=== PATIENT | male | born 1945 | race Caucasian/White ===

== ENCOUNTER 2024-11-06 14:26 | Inpatient (IN) | payer MEDICARE, MEDICAID, SELFPAY ==
[2024-11-06] VITALS (8 sets, daily range): BP systolic 129–165; BP diastolic 59–86; PULSE 58–79; RESP 12–100; TEMP 36.1–37; O2SAT 94–99; BMI 33.3
--- NOTE | 2024-11-06 14:37 | PD.EDADULT ---
ED General RME/HPI General Chief complaint: Extremity Problem,Nontraumatic Stated complaint: LEG PAIN Time Seen by Provider: 11/06/24 14:42 Arrival date/time: 11/06/24 14:26 Limitations: no limitations RME / HPI RME / HPI narrative: DR. 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 Patient's family is concerned with bilateral leg erythema. On 11/03/2024, the patient had an US which was negative for DVT. Code Status: Full code. Related Data Home Medications ?Medication ?Instructions ?Recorded ?Confirmed acetaminophen 650 mg tablet 650 mg PO Q6H PRN Pain (Scale 06/26/21 12/16/23 Score 1-3) allopurinol 300 mg tablet 300 mg PO QDAY 06/26/21 12/16/23 aspirin 81 mg tablet 81 mg PO QDAY 06/26/21 12/16/23 baclofen 10 mg tablet 10 mg PO TID PRN Muscle Spasm 06/26/21 12/16/23 bisacodyl 10 mg rectal suppository See Rx Instructions .Route 06/26/21 12/16/23 (Dulcolax (bisacodyl)) .COMPLEX PRN Constipation carboxymethylcellulose sodium 1 % 1 drp ophthalmic (eye) BID PRN Dry 06/26/21 12/16/23 eye drops (Artificial Tears Eyes (carboxymethylcellulose)) diclofenac sodium 1 % topical gel 4 g topical BID PRN Pain 06/26/21 12/16/23 docusate sodium 100 mg capsule 100 mg PO BID PRN Constipation 06/26/21 12/16/23 (Colace) gabapentin 300 mg capsule 300 mg PO TID 06/26/21 12/16/23 insulin aspart (niacinamide) 7 unit subcut AC 06/26/21 12/16/23 (U-100) 100 unit/mL subcutaneous solution magnesium hydroxide 400 mg/5 mL 30 ml PO Q48H PRN Constipation 06/26/21 12/16/23 oral suspension (Milk of Magnesia) metoprolol tartrate 25 mg tablet 50 mg PO BID 06/26/21 12/16/23 polyethylene glycol 3350 17 gram 17 g PO QDAY PRN Constipation 06/26/21 12/16/23 oral powder packet pramipexole 0.5 mg tablet 0.5 mg PO QPM 06/26/21 12/16/23 rivaroxaban 15 mg tablet (Xarelto) 15 mg PO QPM 06/26/21 12/16/23 sennosides 8.6 mg capsule (senna) 8.6 mg PO QDAY PRN Constipation 06/26/21 12/16/23 spironolactone 25 mg tablet 25 mg PO QDAY 06/26/21 12/16/23 tamsulosin 0.4 mg capsule 0.4 mg PO QDAY 06/26/21 12/16/23 tramadol 50 mg tablet 50 mg PO Q6H PRN Pain (Scale Score 06/26/21 12/16/23 4-6) vitamin B complex-vitamin C-folic 1 tab PO QDAY 06/26/21 12/16/23 acid 0.8 mg tablet (Vicki-Tanesha) amlodipine 5 mg tablet 5 mg PO QDAY 12/16/23 12/16/23 calcium 600 mg (as 1 tab PO BID 12/16/23 12/16/23 carbonate)-vitamin D3 10 mcg (400 unit) tablet glipizide 5 mg tablet 5 mg PO BID 12/16/23 12/16/23 insulin glargine 100 unit/mL 10 unit subcut HS 12/16/23 12/16/23 subcutaneous solution lactulose 20 gram/30 mL oral 30 ml PO QDAY 12/16/23 12/16/23 solution nitroglycerin 0.4 mg sublingual 0.4 mg buccal [id number] PRN Chest 12/16/23 12/16/23 tablet Pain oxycodone 5 mg tablet 5 mg PO PRNMRX2 PRN chronic pain 12/16/23 12/16/23 valsartan 40 mg tablet 40 mg PO QDAY 12/16/23 12/16/23 Previous Rx's ?Medication ?Instructions ?Recorded bumetanide 2 mg tablet 2 mg PO QDAY #30 tabs 12/17/23 Allergies Allergy/AdvReac Type Severity Reaction Status Date / Time Fish Containing Products Allergy Verified 12/16/23 00:22 heparin Allergy Verified 12/16/23 00:22 Review of Systems Review of Systems Systems Reviewed: All systems reviewed, normal except as documented Past Medical History Past Medical History NEUROLOGIC: Positive Neurological Disorders and Cerebrovascular Accident (x5) CARDIAC: Positive Cardiac Disorders and Hypertension; Negative Congestive Heart Failure RESPIRATORY: Negative Chronic Obstructive Pulmonary Disease (COPD) GASTROINTESTINAL: Positive Gastrointestinal Disorders and Obesity GENITOURINARY: Positive Genitourinary Disorders, Renal Disease and Dialysis MUSCULOSKELETAL: Positive Musculoskeletal Disorders ENT: Positive Blind ENDOCRINE: Positive Endocrine Disorders and Diabetes Mellitus Type 2; Negative Diabetes Mellitus Type 1 HEMATOLOGIC: Negative Blood Disorders OTHER HISTORY: Positive Hospitalization, Chicken Pox, Measles and Mumps; Negative Autoimmune Disease, Down Syndrome, Developmental Delay, Shingles, Falls, Blood Transfusions, Anesthesia Reactions, Organ Transplant, MRSA, VRSA, Clostridium Difficile or Cancer Surgical History SURGICAL: Positive Coronary Stent (x2), Abdominal Surgery, Tracheostomy and Joint Replacement; Negative Endocrine Surgery, Ear Surgery, Nephrectomy, Neurologic Surgery, Brain Shunt, Mastectomy, Vasectomy or Organ Transplant Social History SMOKING STATUS: Never smoker SECOND HAND EXPOSURE: No SUBSTANCE USE: does not use ALCOHOL: Never ED Exam General Limitations: Present no limitations General appearance: Present alert, in no apparent distress, obese and other (Patient sleepy.) Head Head exam: Present atraumatic Eye Eye exam: Present normal appearance, PERRL and EOMI ENT ENT exam: Present normal exam, normal oropharynx and mucous membranes moist Neck Neck exam: Present normal inspection, full ROM and trachea midline Chest Chest inspection: Present normal inspection and symmetric chest wall rise Respiratory Respiratory exam: Present normal lung sounds bilaterally Cardiovascular Cardiovascular exam: Present regular rate, normal rhythm and normal heart sounds Abdominal Exam Abdominal exam: Present soft, normal bowel sounds and other (obese) Extremities Exam Extremities exam: Present other (bilateral lower legs' minimal venous stasis dermatitis with a little erythema; no Lizet sign; no cellulitis) Back Exam Back exam: Present normal inspection Neurological Exam Neurological exam: Present other (at baseline per family) Psychiatric Psychiatric exam: Present normal affect and normal mood Skin Skin exam: Present warm, dry, intact and normal color Course Quality Measures none Orders Category Date Time Status Communications Intern NOW Care 11/06/24 14:42 Active Continuous Pulse Oximetry NOW Care 11/06/24 14:42 Completed EKG (ED ONLY) *Do not use* NOW Care 11/06/24 14:42 Completed Glucose [Bedside Blood Glucose] NOW Care 11/06/24 16:50 Active Insert IV NOW Care 11/06/24 14:42 Active EKG (ED Only) Stat Exams 11/06/24 14:42 Draft US venous doppler LE BI Stat Exams 11/06/24 14:42 Completed CBC Stat Lab 11/06/24 14:53 Completed Comprehensive Metabolic Panel Stat Lab 11/06/24 14:53 Completed Partial Thromboplastin Time Stat Lab 11/06/24 14:53 Completed Prothrombin Time with INR Stat Lab 11/06/24 14:53 Completed Troponin I Stat Lab 11/06/24 14:53 Completed Urinalysis Stat Lab 11/06/24 16:00 Completed Insulin Regular Med 11/06/24 15:43 Discontinued 12 unit SC X1 ONE Sodium Chloride 0.9% 1000 ml [Ns] 1,000 ml Med 11/06/24 15:43 Discontinued IV 999 mls/hr cefTRIAXone [Rocephin] 2 gm Med 11/06/24 16:52 Discontinued SODIUM CHLORIDE 0.9% (Popper) [Ns 0.9% (P)] 50 ml IV X1 Vital Signs Vital signs: Vital Signs Temperature 98.0 F 11/06/24 15:19 Pulse Rate 79 11/06/24 15:19 Respiratory Rate 18 11/06/24 15:19 Blood Pressure 129/79 11/06/24 15:19 Pulse Oximetry (%) 97 11/06/24 15:19 Oxygen Delivery Method Room Air 11/06/24 15:19 Discharge Plan Plan Patient Disposition: Admit Acute Care w/in Hospital Prescriptions/Referrals Prescriptions/Med Rec: No Action polyethylene glycol 3350 17 gram Powder In Packet 17 g PO QDAY PRN (Reason: Constipation) acetaminophen 650 mg Tablet 650 mg PO Q6H PRN (Reason: Pain (Scale Score 1-3)) tramadol 50 mg Tablet 50 mg PO Q6H PRN (Reason: Pain (Scale Score 4-6)) spironolactone 25 mg Tablet 25 mg PO QDAY Rx Instructions: hold for sbp <100 or dbp <60 pramipexole 0.5 mg Tablet 0.5 mg PO QPM magnesium hydroxide [Milk of Magnesia] 400 mg/5 mL Suspension 30 ml PO Q48H PRN (Reason: Constipation) tamsulosin 0.4 mg Capsule 0.4 mg PO QDAY baclofen 10 mg Tablet 10 mg PO TID PRN (Reason: Muscle Spasm) bisacodyl [Dulcolax (bisacodyl)] 10 mg Suppository See Rx Instructions .ROUTE .COMPLEX PRN (Reason: Constipation) Rx Instructions: 10 mg rectally as needed Q72HR if no bm docusate sodium [Colace] 100 mg Capsule 100 mg PO BID PRN (Reason: Constipation) gabapentin 300 mg Capsule 300 mg PO TID allopurinol 300 mg Tablet 300 mg PO QDAY Vicki-Tanesha 0.8 mg Tablet 1 tab PO QDAY aspirin 81 mg Tablet 81 mg PO QDAY metoprolol tartrate 25 mg Tablet 50 mg PO BID Rx Instructions: holf if sbp <100 or dbp <60 senna 8.6 mg Capsule 8.6 mg PO QDAY PRN (Reason: Constipation) diclofenac sodium 1 % Gel 4 g TOPICAL BID PRN (Reason: Pain) Rx Instructions: FOR RIGHT KNEE PAIN Xarelto 15 mg Tablet 15 mg PO QPM insulin aspart (niacinamide) 100 unit/mL Solution 7 unit SUBCUT AC Rx Instructions: hold if blood sugar is <80. Artificial Tears (cmc) 1 % Drops 1 drp OPHTHALMIC (EYE) BID PRN (Reason: Dry Eyes) amlodipine 5 mg Tablet 5 mg PO QDAY Rx Instructions: hold if sbp <100 or dpb <60 insulin glargine 100 unit/mL Solution 10 unit SUBCUT HS Rx Instructions: hold if blood sugar <90 glipizide 5 mg Tablet 5 mg PO BID calcium carbonate-vitamin D3 600 mg-10 mcg (400 unit) Tablet 1 tab PO BID lactulose 20 gram/30 mL Solution 30 ml PO QDAY Rx Instructions: hold for loose stools nitroglycerin 0.4 mg Tablet, Sublingual 0.4 mg BUCCAL [id number] PRN (Reason: Chest Pain) Rx Instructions: Give 1 tablet sublingual as needed for chest pain give 1 tab wait 5 mins and give another if chest pain persists, give third dose after another 5 mins if chest pain continues and transfer to ED oxycodone 5 mg Tablet 5 mg PO PRNMRX2 PRN (Reason: chronic pain) valsartan 40 mg Tablet 40 mg PO QDAY Rx Instructions: hold if sbp <100, dbp <60 or hr <60 bumetanide 2 mg tablet 2 mg PO QDAY Qty: 30 0RF Referrals: No Primary/Family,Physician [Primary Care Provider] - In 1 week Problem List Clinical Impression: Acute kidney injury, UTI (urinary tract infection), Hyperglycemia Patient/Caregiver Discharge Instructions Print Language: Amharic Stand Alone Forms: Renee Award Info., Patient Portal Info Letter MDM Narrative [facility] hospital course: I, Annabel Bell, am scribing for and in the presence of Dr. Pelayo. 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 Code Status: Full code. EKG EKG Interpretation narrative: My interpretation: EKG performed at 1453 hours, sinus rhythm with first degree AV block with occasional ventricular premature complexes, rate 72, no acute changes Imaging Radiology reports / interpretation(s): Procedure(s): US venous doppler LE Accession Number(s): [id number] cc: Orion Pelayo MD; Percy Alexander MD~ Examination: Venous duplex lower extremity sonogram, bilateral. Date and time of exam: November 06, 2024 1456 hours INDICATIONS: Bilateral leg swelling and pain beginning 2 days ago Technique: Multiple sonographic images of the deep venous system have been obtained. B-mode/2-D grayscale imaging of vascular structures and Doppler spectral analysis (waveforms) and color performed Both legs are examined. Findings: Deep venous systems do not demonstrate abnormal echogenicity. All visualized deep veins exhibit compressibility. All visualized deep veins exhibit augmentation. Impression: Negative for deep vein thrombosis Dictated By: Percy Alexander MD Medication Administration(s) Medication Administration History Discontinued Medications Sodium Chloride (Ns) 1,000 mls @ 999 mls/hr IV .Q1H1M ONE Stop: 11/06/24 16:43 Last Infusion: 11/06/24 17:24 Dose: Infused Documented By: Admin: 11/06/24 16:15 Dose: 999 mls/hr Documented By: CG Ceftriaxone Sodium 2 gm/ (Sodium Chloride) 50 mls @ 100 mls/hr IV X1 ONE Stop: 11/06/24 17:21 Insulin Human Regular (Insulin Hum Regular 1 Unit/0.01 Ml (Per Unit)) 12 unit SC X1 ONE Stop: 11/06/24 15:44 Last Admin: 11/06/24 16:15 Dose: 12 unit Documented By: SHIKHA Co-signed By: LEANDRO Consultations/Discussions re: Management Consult #1: Date/time: 11/06/24 5:50 pm Physician, specialty, service, details: Discussed test HPI, PMHx, lab, radiology results and/or management with Dr. Bowen. Will consult an admission to the hospitalist. Diagnosis Differential diagnosis: DVT, cellulitis, venous stasis dermatitis Most likely dx, and/or detailed dx discussion: Acute kidney injury UTI Hyperglycemia Dispositon Disposition: Admit
--- NOTE | 2024-11-06 14:42 | XR_ITS ---
Examination: Venous duplex lower extremity sonogram, bilateral. Date and time of exam: November 06, 2024 1456 hours INDICATIONS: Bilateral leg swelling and pain beginning 2 days ago Technique: Multiple sonographic images of the deep venous system have been obtained. B-mode/2-D grayscale imaging of vascular structures and Doppler spectral analysis (waveforms) and color performed Both legs are examined. Findings: Deep venous systems do not demonstrate abnormal echogenicity. All visualized deep veins exhibit compressibility. All visualized deep veins exhibit augmentation. Impression: Negative for deep vein thrombosis
--- NOTE | 2024-11-06 14:42 | EKG_ITS ---
[facility] Test Date: 2024-11-06 Pat Name: SHEREE HARDEN Department: Room: - Gender: Male [employer]: : 1945 Requested By: Orion Mancilla Order Number: [id number] Reading MD: Orion Mancilla Measurements Intervals [place] Rate: 72 P: 67 VA: 255 QRS: -55 QRSD: 91 T: 50 QT: 392 QTc: 431 Interpretive Statements SINUS RHYTHM WITH FIRST DEGREE AV BLOCK WITH OCCASIONAL VENTRICULAR PREMATURE COMPLEXES LOW QRS VOLTAGE IN PRECORDIAL LEADS [QRS DEFLECTION < 1.0 mV IN CHEST LEADS] LEFT ANTERIOR FASCICULAR BLOCK [QRS AXIS <= -45, QR IN I, RS IN II] POSSIBLE ANTERIOR MYOCARDIAL INFARCTION , OF INDETERMINATE AGE [30 ms Q WAVE IN V3/V4, OR R < 0.2 mV IN V4] Compared to ECG 12/15/2023 13:20:13 Left anterior fascicular block now present Myocardial infarct finding still present /store/S0/[id number]/ecg/[id number].pdf
[2024-11-06 15:02] LABS: Basophils % (Auto) 1 % (0-2.5); Eosinophils # (Auto) 0.2 Thou/mm3 (0.0-0.5); Eosinophils % (Auto) 3 % (0-10); Hematocrit 35.4 % (41.0-53.0); Hemoglobin 12.5 g/dL (13.5-16.0); Immature Granulocytes % (Auto) 1 % (0-0); Immature Granulocytes Auto 0.07 Thou/mm3 (0.00-0.00); Lymphocytes # (Auto) 1.6 Thou/mm3 (1.0-4.8); Lymphocytes % (Auto) 24 % (10-50); Mean Corpuscular HGB Conc 35.3 g/dl (31.0-37.0); Mean Corpuscular Hemoglobin 32.3 pg (25.0-35.0); Mean Corpuscular Volume 92 fL (80-100); Monocytes # (Auto) 0.5 Thou/mm3 (0.0-0.8); Monocytes % (Auto) 7 % (0-12); Neutrophils # (Auto) 4.1 Thou/mm3 (1.8-7.7); Neutrophils % (Auto) 64 % (37-80); Nucleated Red Blood Cell % 0 /100 WBC (0); Platelet Count 138 Thou/mm3 (140-440); RDW Standard Deviation 49.9 fL (35.1-43.9); Red Blood Count 3.87 Miln/mm3 (4.50-5.90); White Blood Count 6.5 Thou/mm3 (3.8-10.6)
[2024-11-06 15:17] LABS: INR 1.1 (0.9-1.3); Partial Thromboplastin Time 27.2 Seconds (22.0-36.0); Prothrombin Time 11.9 Seconds (9.0-12.2)
[2024-11-06 15:29] LABS: Alanine Aminotransferase 20 U/L (10-49); Albumin, Serum 3.9 gm/dL (3.4-4.8); Albumin/Globulin Ratio 1.9 (1.2-2.2); Alkaline Phosphatase 84 U/L (46-116); Anion Gap 8 (7-16); Aspartate Amino Transferase 13 U/L (0-34); BUN/Creatinine Ratio 25 Ratio (12-20); Bilirubin,Total 0.3 mg/dL (0.3-1.2); Blood Urea Nitrogen 53 mg/dL (9-23); Calcium 9.1 mg/dL (8.3-10.6); Calcium (Corrected) 9.2 mg/dL (8.5-10.1); Carbon Dioxide 27.4 mMol/L (20.0-31.0); Chloride 96 mMol/L (98-107); Creatinine (Component) 2.1 mg/dL (0.6-1.3); Estimated Creatinine Clearance 38.3 mL/min (>60); Globulin 2.1 gm/dL (2.3-3.5); Osmolality,Calculated 301 (275-295); Sodium 131 mMol/L (136-145); Troponin I < 0.020 ng/mL (0.0-0.045); eGFR 31 See Note
[2024-11-06 15:31] LABS: Glucose 523 mg/dL (74-106)
[2024-11-06 16:15] LABS: Collection Type, Urine Clean Catch
[2024-11-06] MEDS: INSULIN HUM REGULAR 1 UNIT/0.01 ML (PER UNIT) 12 UNIT SC (16:15)
[2024-11-06] MEDS: SODIUM CHLORIDE 0.9% 1000 ML 1,000 ML 999 ML IV (16:15)
[2024-11-06 16:39] LABS: Bilirubin,Urine Negative (Negative); Blood,Urine Negative (Negative); Clarity,Urine Clear (Clear/Hazy); Color,Urine Lt-Yellow (Lt Yel-Yel); Glucose, Urine 3+ (Negative); Hyaline Casts,Urine < 1 /hpf (0-1); Ketones,Urine Negative (Negative); Leukocyte Esterase,Urine Positive (Negative); Nitrite,Urine Negative (Negative); PH,Urine 6.5 (5.0-7.0); Protein,Urine Trace (Neg - Trace); RBC,Urine 4 /hpf (0-3); Specific Gravity,Urine 1.014 (1.001-1.035); Squamous Epithelial Cell,Urine < 1 /hpf (0-5); Urobilinogen,Urine Negative mg/dL (0.0-1.0); WBC,Urine 43 /hpf (0-5)
--- NOTE | 2024-11-06 18:06 | PD.RESEVENT ---
Documentation for date of: 11/06/24 Event Note Event Note: ED called for admission Mr. 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 Pt is found to have blood glucose of 523 with BUN 53, creatinine 2.1. Requested stat renal panel and ABG. Will pass it on to the night team Discussed with my attending physician Dr. Katrina Cunha (PGY-1)- Internal medicine resident
[2024-11-06] MEDS: cefTRIAXone 2 GM in SODIUM CHLORIDE 0.9% (Popper) 50 ML IV (18:13)
[2024-11-06 18:28] LABS: Allen Test Performed/OK; Base Excess 1 (-3-3); HCO3 26 mEq/L (20-26); Inspired Oxygen, FIO2 21 %; O2 Saturation 96 % (91-98); PCO2 47 mmHg (32.0-48.0); PO2 76 mmHg (83-108); Puncture Site Right Radial; pH, Arterial 7.36 (7.35-7.45)
[2024-11-06 18:50] LABS: Albumin, Serum 3.9 gm/dL (3.4-4.8); Anion Gap 5 (7-16); BUN/Creatinine Ratio 26 Ratio (12-20); Blood Urea Nitrogen 51 mg/dL (9-23); Calcium 8.8 mg/dL (8.3-10.6); Calcium (Corrected) 8.9 mg/dL (8.5-10.1); Carbon Dioxide 29.7 mMol/L (20.0-31.0); Chloride 97 mMol/L (98-107); Estimated Creatinine Clearance 40.2 mL/min (>60); Glucose 398 mg/dL (74-106); Osmolality,Calculated 295 (275-295); Potassium 4.9 mMol/L (3.4-5.1); Sodium 132 mMol/L (136-145); eGFR 33 See Note
--- NOTE | 2024-11-06 20:05 | XR_ITS ---
Examination: CT bilateral lower extremities, without contrast. 2-D sagittal reconstructions. 2-D coronal reconstructions. 3-D reconstructions. Date and time of exam:November 06, 2024 at 2123 hours INDICATIONS: Bilateral redness swelling and pain today CTDI: vol (mGy):15.6 DLP: (mGycm):1824 Technique: Multiple 1.25 mm axial sections of the bilateral lower extremities without intravenous contrast have been obtained. 2-D sagittal and coronal reconstructions have been obtained. 3-D reconstructions have been obtained. Low dose protocols were performed. One or more of the following dose reduction techniques were used; automated exposure control, adjustment of the mA and/or KV according to patient size, use of iterative reconstruction technique. Findings: Large amounts of stool in the rectum with thickening of the rectal wall Cellulitis pattern in the lower legs with edema in the subcutaneous fatty tissue No soft tissue abscess No osteomyelitis Heavy arterial vascular calcification IMPRESSION: Cellulitis pattern both lower extremities No soft tissue abscess Negative for osteomyelitis
--- NOTE | 2024-11-06 20:16 | ESHP_ITS ---
<Statement entered by Rosita Cunha MD - 11/07/24 06:31> I Rosita Cunha MD reviewed the note and agree with the resident's assessment & plan with exceptions as below. I have personally reviewed labs, imaging, home meds/prior records, examined the patient, formulated and discussed management plan with the IM team. An 78-year-old male with a history of HTN, DM, CKD, CVA, legally blind, PAD presented to ED with bilateral lower extremity pain and swelling. Initial evaluation did not reveal CHARLENE on CKD, uncontrolled DM with hyperglycemia and UA positive for leukocyte Estrace. EKG did reveal sinus rhythm with first-degree AV block however telemetry concerning for ventricular bigeminy. Echocardiogram previously had been unremarkable. Will admit patient for cellulitis bilateral lower extremity likely in the setting of CVI, started on Zosyn and vancomycin. Continue gentle IVF resuscitation, obtain echocardiogram. Will also obtain US hepatobiliary to evaluate for hepatic disease in the setting of significantly distended abdomen and cirrhotic appearance. 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 Patient at baseline has some aphasia at baseline therefore speech is very difficult to come. Patient stated that around a week ago he started noticing his lower extremity edema, but denied having any fevers, chills, sweats, shortness of breath, chest pain, nausea, vomiting, burning sensation of urination, or changes in bowel movements. He stated that he is bedbound for around 2 years now and has been unable to walk. Patient lives at [facility]. Otherwise had no new complaints today. ED course: Initially came in afebrile and normotensive. Initial labs were relevant for hyperglycemia, CHARLENE, and UA was positive for leukocytes esterase, but -2 bacteria. Initial imaging included a venous Doppler which did not show any DVT and EKG that showed first-degree AV block with occasional PVCs. PMH: As above Social Hx: Denies any smoking, admits social drinking, denies any illicit drugs Allergies: None per patient, asked about heparin allergy and patient stated he has gotten it before and did not have any reaction. Surgical Hx: Back surgery and knee surgery Review of Systems Review of Systems Systems Reviewed: All systems reviewed, normal except as documented Past Medical History Past Medical History NEUROLOGIC: Positive Neurological Disorders and Cerebrovascular Accident (x5) CARDIAC: Positive Cardiac Disorders and Hypertension; Negative Congestive Heart Failure RESPIRATORY: Negative Chronic Obstructive Pulmonary Disease (COPD) GASTROINTESTINAL: Positive Gastrointestinal Disorders and Obesity GENITOURINARY: Positive Genitourinary Disorders, Renal Disease and Dialysis MUSCULOSKELETAL: Positive Musculoskeletal Disorders ENT: Positive Blind ENDOCRINE: Positive Endocrine Disorders and Diabetes Mellitus Type 2; Negative Diabetes Mellitus Type 1 HEMATOLOGIC: Negative Blood Disorders OTHER HISTORY: Positive Hospitalization, Chicken Pox, Measles and Mumps; Negative Autoimmune Disease, Down Syndrome, Developmental Delay, Shingles, Falls, Blood Transfusions, Anesthesia Reactions, Organ Transplant, MRSA, VRSA, Clostridium Difficile or Cancer Surgical History SURGICAL: Positive Coronary Stent (x2), Abdominal Surgery, Tracheostomy and Joint Replacement; Negative Endocrine Surgery, Ear Surgery, Nephrectomy, Neurologic Surgery, Brain Shunt, Mastectomy, Vasectomy or Organ Transplant Social History SMOKING STATUS: Never smoker SECOND HAND EXPOSURE: No SUBSTANCE USE: does not use ALCOHOL: Never Exam Vital Signs Temp Pulse Resp BP Pulse Ox O2 Del Method 98.6 F 58 L 14 136/59 H 94 L Room Air 11/06/24 19:24 11/06/24 19:24 11/06/24 19:24 11/06/24 19:24 11/06/24 19:24 11/06/24 19:24 Narrative Exam General: A/O x3, no acute distress Eyes: Legally blind, anicteric Ears: No ear pain, no ear discharge, Hearing grossly intact. Nose: No nasal discharge. Mouth/Throat: Dry mucous membranes, no redness, no lesions. Neck: Neck supple, non-tender, no cervical lymphadenopathy. Lungs: Clear JAGDEEP to auscultation and percussion, No accessory muscle use. Cardio: Normal S1/S2, regular rhythm, no murmurs, no JVD or carotid bruits. Abdomen: Soft, non-tender, no palpable masses, peristalsis present, no guarding or rebound. Extremities: Symmetrical, no significant deformities, 2+ peripheral edema and blanching erythema with an ulcer in medial L LE without any discharge, non- tender, peripheral pulses presents. Skin: No other rashes or lesions, warm to touch. Neuro: Aphasia noted, moving all extremities, but JAGDEEP LE weak. able to answe all question appropriately and follow commands. Results: Labs 11/06/24 14:53 11/06/24 18:09 Labs: Short CBC 11/06/24 Range/Units 14:53 WBC 6.5 (3.8-10.6) Thou/mm3 Hgb 12.5 L (13.5-16.0) g/dL Hct 35.4 L (41.0-53.0) % Plt Count 138 L (140-440) Thou/mm3 BMP 11/06/24 11/06/24 14:53 18:09 Sodium 131 L 132 L Potassium 5.0 4.9 Chloride 96 L 97 L Carbon Dioxide 27.4 29.7 BUN 53 H 51 H Creatinine 2.1 H 2.0 H Glucose 523 H* 398 H D Calcium 9.1 8.8 Cardiac Enzymes 11/06/24 Range/Units 14:53 Troponin I < 0.020 (0.0-0.045) ng/mL Liver Function 11/06/24 11/06/24 Range/Units 14:53 18:09 Total Bilirubin 0.3 (0.3-1.2) mg/dL AST 13 (0-34) U/L ALT 20 (10-49) U/L Alkaline Phosphatase 84 (46-116) U/L Albumin 3.9 3.9 (3.4-4.8) gm/dL Urine 11/06/24 Range/Units 16:00 Urine Color Lt-Yellow (Lt Yel-Yel) Urine Clarity Clear (Clear/Hazy) Urine pH 6.5 (5.0-7.0) Ur Specific [place] 1.014 (1.001-1.035) Urine Protein Trace (Neg - Trace) Urine Glucose (UA) 3+ A (Negative) ABG Interpretation ABG results: 11/06/24 18:20 ABG pH 7.36 ABG pCO2 47 ABG pO2 76 L ABG HCO3 26 ABG O2 Saturation 96 ABG Base Excess 1 Quality Measures Quality Measures none Advance care planning discussed with:: patient Medications Home Medications and Allergies Home Medications ?Medication ?Instructions ?Recorded ?Confirmed ?Type acetaminophen 650 mg tablet 650 mg PO Q6H PRN Pain (Sc kala 06/26/21 12/16/23 History Score 1-3) allopurinol 300 mg tablet 300 mg PO QDAY 06/26/21 08/06/09 History aspirin 81 mg tablet 81 mg PO QDAY 06/26/2112/15 History baclofen 10 mg tablet 10 mg PO TID PRN Muscle Spas m 06/26/21 12/16/23 History bisacodyl 10 mg rectal suppository See Rx Instructions .Route 06/26/21 12/16/23 History (Dulcolax (bisacodyl)) .COMPLEX PRN Constipation carboxymethylcellulose sodium 1 % 1 drp ophthalmic (ey e) BID PRN Dry 06/26/21 12/16/23 History eye drops (Artificial Tears Eyes (carboxymethylcellulose)) diclofenac sodium 1 % topical gel 4 g topical BID PRN Pain 06/26/21 12/16/23 History docusate sodium 100 mg capsule 100 mg PO BID PRN Const ipation 06/26/21 12/16/23 History (Colace) gabapentin 300 mg capsule 300 mg PO TID 06/26/2112/15 History insulin aspart (niacinamide) 7 unit subcut AC 06/26/21 12/16/23 History (U-100) 100 unit/mL subcutaneous solution magnesium hydroxide 400 mg/5 mL 30 ml PO Q48H PRN Cons tipation 06/26/21 12/16/23 History oral suspension (Milk of Magnesia) metoprolol tartrate 25 mg tablet 50 mg PO BID 06/26/21 12/16/23 History polyethylene glycol 3350 17 gram 17 g PO QDAY PRN Cons tipation 06/26/21 12/16/23 History oral powder packet pramipexole 0.5 mg tablet 0.5 mg PO QPM 06/26/2112/15 History rivaroxaban 15 mg tablet (Xarelto) 15 mg PO QPM 12/16/23 History sennosides 8.6 mg capsule (senna) 8.6 mg PO QDAY PRN C onstipation 06/26/21 12/16/23 History spironolactone 25 mg tablet 25 mg PO QDAY 06/26/2106/09 History tamsulosin 0.4 mg capsule 0.4 mg PO QDAY 06/26/21 08/0 06/09 History tramadol 50 mg tablet 50 mg PO Q6H PRN Pain (Scale Score 06/26/21 12/16/23 History 4-6) vitamin B complex-vitamin C-folic 1 tab PO QDAY 12/16/23 History acid 0.8 mg tablet (Vicki-Tanesha) amlodipine 5 mg tablet 5 mg PO QDAY 12/16/23 History calcium 600 mg (as 1 tab PO BID 12/16/23 History carbonate)-vitamin D3 10 mcg (400 unit) tablet glipizide 5 mg tablet 5 mg PO BID 12/16/23 4 History insulin glargine 100 unit/mL 10 unit subcut HS 4 12/16/23 History subcutaneous solution lactulose 20 gram/30 mL oral 30 ml PO QDAY 12/16/23 History solution nitroglycerin 0.4 mg sublingual 0.4 mg buccal [id number] PRN Chest 12/16/23 12/16/23 History tablet Pain oxycodone 5 mg tablet 5 mg PO [id number] PRN chronic pain 12/16/23 12/16/23 History valsartan 40 mg tablet 40 mg PO QDAY 12/16/2312/15 History Allergies Allergy/AdvReac Type Severity Reaction Status Date / Time Fish Containing Products Allergy Verified 12/16/23 00:22 heparin Allergy Verified 12/16/23 00:22 Visit Medications Hydrocodone Bitart/Acetaminophen (Hydrocodone/Apap 5/325 Tablet) 1 tab PO Q4HR PRN PRN Reason: PAIN SCALE 4-10(Mod-Sev Stop: 11/11/24 19:59 Dextrose (Dextrose 50%-Water Inj 50 Ml Syringe) 25 ml IV Q15MIN PRN PRN Reason: BG 50-70 responsive npo pt Stop: 12/06/24 19:59 Dextrose (Dextrose 50%-Water Inj 50 Ml Syringe) 50 ml IV Q15MIN PRN PRN Reason: BG <50 OR BG <70 & pt unresponsive Stop: 12/06/24 19:59 Glucagon (Glucagon Inj 1 Mg Vial) 1 mg IM Q15MIN PRN PRN Reason: BG <70, and no IV access Doxycycline Hyclate 100 mg/ (Sodium Chloride) 100 mls @ 100 mls/hr IV BID COLTEN Stop: 11/13/24 20:59 Piperacillin Sod/Tazobactam (Sod 4.5 gm/ Sodium Chloride) 100 mls @ 200 mls/hr IV Q8HR COLTEN Stop: 11/13/24 21:59 Insulin Glargine (Insulin Glargine (Lantus) 5 Unit/0.05 Ml (Per 5 Units)) 10 unit SC HS [facility] Stop: 12/06/24 20:59 Insulin Human Lispro (Insulin Lispro (Admelog) 1 Unit/0.01 Ml Unit) 0 unit SC AC [facility]; Protocol Stop: 12/07/24 07:29 Ondansetron HCl (Ondansetron Inj 2 Mg/Ml Inj 2 Ml) 4 mg IVP Q6H PRN; Protocol PRN Reason: NAUSEA OR VOMITING Stop: 12/06/24 19:59 Discontinued Medications Sodium Chloride (Ns) 1,000 mls @ 999 mls/hr IV .Q1H1M ONE Stop: 11/06/24 16:43 Last Infusion: 11/06/24 17:24 Dose: Infused Ceftriaxone Sodium 2 gm/ (Sodium Chloride) 50 mls @ 100 mls/hr IV X1 ONE Stop: 11/06/24 17:21 Last Infusion: 11/06/24 18:30 Dose: Infused Insulin Human Lispro (Insulin Lispro (Admelog) 1 Unit/0.01 Ml Unit) [facility]; Protocol Stop: 12/06/24 20:59 Insulin Human Regular (Insulin Hum Regular 1 Unit/0.01 Ml (Per Unit)) 12 unit SC X1 ONE Stop: 11/06/24 15:44 Last Admin: 11/06/24 16:15 Dose: 12 unit Assessment & Plan Plan 78-year-old male wheelchair-bound and legally blind male with past medical history of 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 #Bilateral lower extremity erythema #Hx of chronic leg edema #Hx of PAD Patient noticed around 1 week of erythema in bilateral lower extremities Patient's last echo on 2021 was EF of 55% Patient has chronic lower extremity swelling, but on assessment had a blanching erythematous rash with a wound on the medial aspect of the left lower extremity likely from venous insufficiency. Patient hide risk for infection being bedbound and history of DM2 Plan: Order inflammatory markers such as ESR CRP and procalcitonin Will start patient on doxycycline and Zosyn for now Ordered blood cultures Ordered BNP as well to rule out worsening CHF Ordered CT of the lower extremities bilateral without contrast Ordered wound care Strict MAXINE's and daily weights #CHARLENE on CKD Patient has a history of CKD and baseline creatinine is around 1.8 and on admission was 2.1 with improved with some fluids to 2. Patient is currently not on hemodialysis Plan: Avoid nephrotoxic agents Renally dose medication Nephrology consulted, appreciate commendations #Frequent PVCs On assessment patient was having frequent PVCs on lunchroom monitor Patient's last echo showed an EF of 55% with mitral and tricuspid valve regurgitation Patient's potassium was 4.9 EKG showed first-degree AV block Plan: 2 gm Magnesium ordered Order magnesium level Ordered echo Order repeat EKG Will give beta-blockers and replete electrolytes as necessary once labs and EKG are back. #Hx of DM2 Patient's last A1c was on 12/2023 and was 6 On admission patient's blood sugar was 523 Got 12 units of regular insulin subcu in the ED Plan: A1c for morning labs Glargine 10 units at bedtime ISS Hypoglycemia protocol ordered Will continue to monitor Chronic diseases: #Hx of CVA with residual aphasia #Hx of hypertension #Hx of blindness Disposition: Patient admitted to [facility] for LE erythema. Diet: Renal GI prophylaxis: not indicated DVT prophylaxis: Lovenox Code: Full Case disclosed with Attending Dr. Alphonse Nash PGY1 Disclaimer: Even though this this note was dictated by speech recognition and even though it was carefully revised there may still be minor errors in cook vacuum kettle due to voice recognition software.
--- NOTE | 2024-11-06 20:22 | EKG_ITS ---
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1945 Requested By: Mode Nash Order Number: [id number] Reading MD: Mode Nash Measurements Intervals [place] Rate: 68 P: 83 OH: 260 QRS: -42 QRSD: 88 T: 53 QT: 368 QTc: 392 Interpretive Statements SINUS RHYTHM WITH FIRST DEGREE AV BLOCK WITH FREQUENT VENTRICULAR PREMATURE COMPLEXES IN A BIGEMINAL PATTERN LOW QRS VOLTAGE IN PRECORDIAL LEADS [QRS DEFLECTION < 1.0 mV IN CHEST LEADS] PATTERN CONSISTENT WITH PULMONARY DISEASE INFERIOR MYOCARDIAL INFARCTION , OF INDETERMINATE AGE [40+ ms Q WAVE AND/OR ST/T ABNORMALITY IN II/aVF] Compared to ECG 11/06/2024 14:53:06 Left anterior fascicular block no longer present Myocardial infarct finding still present /store/S0/[id number]/[id number].pdf
[2024-11-06 20:32] LABS: Sed Rate (ESR) 39 mm/hr (0-20)
[2024-11-06 20:44] LABS: C-Reactive Protein 0.9 mg/dL (0.0-0.9); Magnesium 1.9 mg/dL (1.6-2.6); Procalcitonin 0.11 ng/ml (0.0-0.49)
[2024-11-06] MEDS: INSULIN GLARGINE (Lantus) 5 UNIT/0.05 ML (PER 5 UNITS) 10 UNIT SC (20:52)
[2024-11-06] MEDS: DOXYCYCLINE INJ 100 MG in SODIUM CHLORIDE 0.9% (POP) 100 ML IV (20:53)
[2024-11-06 20:54] LABS: B-Type Natriuretic Peptide 55 pg/mL (0-100)
[2024-11-06] MEDS: Magnesium Sulfate 2 GM Ivpb 2 GM/50 ML BAG IV (20:55)
[2024-11-06] MEDS: PIPER/TAZO INJ 4.5 GM in SODIUM CHLORIDE 0.9% (POP) 100 ML IV (22:36)
[2024-11-07] VITALS (16 sets, daily range): BP systolic 139–177; BP diastolic 78–97; PULSE 68–83; RESP 16–96; TEMP 36.1–36.4; O2SAT 92–98
[2024-11-07 05:20] LABS: Basophils # (Auto) 0.1 Thou/mm3 (0.0-0.2); Basophils % (Auto) 1 % (0-2.5); Eosinophils # (Auto) 0.3 Thou/mm3 (0.0-0.5); Eosinophils % (Auto) 5 % (0-10); Hematocrit 37.8 % (41.0-53.0); Hemoglobin 13.1 g/dL (13.5-16.0); Immature Granulocytes % (Auto) 1 % (0-0); Immature Granulocytes Auto 0.06 Thou/mm3 (0.00-0.00); Lymphocytes # (Auto) 1.9 Thou/mm3 (1.0-4.8); Lymphocytes % (Auto) 28 % (10-50); Mean Corpuscular HGB Conc 34.7 g/dl (31.0-37.0); Mean Corpuscular Hemoglobin 31.6 pg (25.0-35.0); Mean Corpuscular Volume 91 fL (80-100); Monocytes # (Auto) 0.5 Thou/mm3 (0.0-0.8); Monocytes % (Auto) 8 % (0-12); Neutrophils # (Auto) 3.9 Thou/mm3 (1.8-7.7); Neutrophils % (Auto) 57 % (37-80); Nucleated Red Blood Cell % 0 /100 WBC (0); Platelet Count 123 Thou/mm3 (140-440); RDW Standard Deviation 48.6 fL (35.1-43.9); Red Blood Count 4.14 Miln/mm3 (4.50-5.90); White Blood Count 6.8 Thou/mm3 (3.8-10.6)
[2024-11-07 05:28] LABS: Glucose Estimated Average 217 mg/dL (80-131); Hemoglobin A1C 9.2 % Hgb (4.8-6.0)
[2024-11-07] MEDS: PIPER/TAZO INJ 4.5 GM in SODIUM CHLORIDE 0.9% (POP) 100 ML IV (05:29)
[2024-11-07 05:39] LABS: Alanine Aminotransferase 18 U/L (10-49); Albumin, Serum 3.9 gm/dL (3.4-4.8); Albumin/Globulin Ratio 1.9 (1.2-2.2); Alkaline Phosphatase 83 U/L (46-116); Anion Gap 6 (7-16); Aspartate Amino Transferase 12 U/L (0-34); BUN/Creatinine Ratio 26 Ratio (12-20); Bilirubin,Total 0.3 mg/dL (0.3-1.2); Blood Urea Nitrogen 45 mg/dL (9-23); Calcium 9.5 mg/dL (8.3-10.6); Calcium (Corrected) 9.6 mg/dL (8.5-10.1); Carbon Dioxide 29.6 mMol/L (20.0-31.0); Cardiac Risk Estimate 5.6 RATIO (4.0-6.7); Chloride 100 mMol/L (98-107); Cholesterol 139 mg/dL (132-200); Creatinine (Component) 1.7 mg/dL (0.6-1.3); Estimated Creatinine Clearance 47.8 mL/min (>60); Globulin 2.1 gm/dL (2.3-3.5); Glucose 315 mg/dL (74-106); HDL Cholesterol 25 mg/dL (40-60); LDL Cholesterol,Calculated 74 mg/dL (0-130); Magnesium 2.1 mg/dL (1.6-2.6); Osmolality,Calculated 295 (275-295); Phosphorous 3.1 mg/dL (2.4-5.1); Potassium 5.4 mMol/L (3.4-5.1); Sodium 136 mMol/L (136-145); Triglycerides 200 mg/dL (30-150); eGFR 40 See Note
--- NOTE | 2024-11-07 07:43 | XR_ITS ---
Examination: Abdomen sonogram, complete Date and time of exam: November 07, 2024 0810 hours INDICATIONS: Diagnosis cirrhosis, chronic kidney disease on laboratory examination today. Technique: Multiple real-time grayscale transabdominal sonographic images of the abdomen have been obtained. Findings: Normal gallbladder Normal common bile duct 0.3 cm Pancreas obscured by bowel gas Mid distal aorta visualized not enlarged Hepatomegaly 21 cm lobular contour Normal hepatopedal portal venous flow Patent IVC Right kidney 11.3 cm cortex 1.0 cm Left kidney 13.0 cm cortex 0.9 cm Moderate renal parenchymal scar formation Spleen 12.3 cm IMPRESSION: Cirrhosis with moderate hepatomegaly Normal gallbladder Bilateral renal cortical thinning Moderate bilateral renal parenchymal scar formation
--- NOTE | 2024-11-07 08:26 | PD.RESPRO ---
Documentation for date of: 11/07/24 Exam Vital Signs Temp Pulse Resp BP Pulse Ox O2 Del Method 97.2 F 79 18 165/78 H 97 Room Air 11/07/24 08:00 11/07/24 08:00 11/07/24 08:00 11/07/24 08:00 11/07/24 08:00 11/07/24 05:59 Narrative Exam General: A/O x3, no acute distress Eyes: Legally blind, anicteric Ears: No ear pain, no ear discharge, Hearing grossly intact. Nose: No nasal discharge. Mouth/Throat: Dry mucous membranes, no redness, no lesions. Neck: Neck supple, non-tender, no cervical lymphadenopathy. Lungs: Clear JAGDEEP to auscultation and percussion, No accessory muscle use. Cardio: Normal S1/S2, regular rhythm, no murmurs, no JVD or carotid bruits. Abdomen: Soft, non-tender, no palpable masses, peristalsis present, no guarding or rebound. Extremities: Symmetrical, no significant deformities, 2+ peripheral edema and blanching erythema with an ulcer in medial L LE without any discharge, non-tender, peripheral pulses presents. Skin: No other rashes or lesions, warm to touch. Neuro: Aphasia noted, moving all extremities, but JAGDEEP LE weak. able to answe all question appropriately and follow commands. Objective Labs 11/07/24 04:50 11/07/24 04:50 Labs: Laboratory Results - last 24 hr 11/06/24 11/06/24 11/06/24 14:53 16:00 18:09 WBC 6.5 RBC 3.87 L Hgb 12.5 L Hct 35.4 L MCV 92 MCH 32.3 MCHC 35.3 RDW Std Deviation 49.9 H Plt Count 138 L Neut % (Auto) 64 Lymph % (Auto) 24 Graham % (Auto) 7 Eos % (Auto) 3 Baso % (Auto) 1 Neut # (Auto) 4.1 Lymph # (Auto) 1.6 Graham # (Auto) 0.5 Eos # (Auto) 0.2 Baso # (Auto) 0.0 Immature Gran # (Auto) 0.07 H Absolute Nucleated RBC 0.00 Immature Gran % 1 H Nucleated RBC % 0 ESR PT 11.9 INR 1.1 APTT 27.2 Puncture Site ABG pH ABG pCO2 ABG pO2 ABG HCO3 ABG O2 Saturation ABG Base Excess FiO2 Sodium 131 L 132 L Potassium 5.0 4.9 Chloride 96 L 97 L Carbon Dioxide 27.4 29.7 Anion Gap 8 5 L BUN 53 H 51 H Creatinine 2.1 H 2.0 H Estim Creat Clear Calc 38.3 L 40.2 L eGFR 31 L 33 L BUN/Creatinine Ratio 25 H 26 H Glucose 523 H* [address] Glu mg/dL Hemoglobin A1c Calculated Osmolality 301 H 295 Calcium 9.1 8.8 Corrected Calcium 9.2 8.9 Phosphorus 4.0 Magnesium Total Bilirubin 0.3 AST 13 ALT 20 Alkaline Phosphatase 84 Troponin I < 0.020 C-Reactive Prot, Quant B-Natriuretic Peptide Total Protein 6.0 Albumin 3.9 3.9 Globulin 2.1 L Albumin/Globulin Ratio 1.9 Triglycerides Cholesterol LDL Cholesterol, Calc HDL Cholesterol Cholesterol/HDL Ratio Procalcitonin Ur Collection Type Clean Catch Urine Color Lt-Yellow Urine Clarity Clear Urine pH 6.5 Ur Specific [place] 1.014 Urine Protein Trace Urine Glucose (UA) 3+ A Urine Ketones Negative Urine Blood Negative Urine Nitrite Negative Urine Bilirubin Negative Urine Urobilinogen (Auto) Negative Ur Leukocyte Esterase Positive Urine RBC 4 H Urine WBC 43 H Ur Squamous Epith Cells < 1 Urine Bacteria None Hyaline Casts < 1 11/06/24 11/06/24 11/07/24 18:20 20:14 04:50 WBC 6.8 RBC 4.14 L Hgb 13.1 L Hct 37.8 L MCV 91 MCH 31.6 MCHC 34.7 RDW Std Deviation 48.6 H Plt Count 123 L Neut % (Auto) 57 Lymph % (Auto) 28 Graham % (Auto) 8 Eos % (Auto) 5 Baso % (Auto) 1 Neut # (Auto) 3.9 Lymph # (Auto) 1.9 Graham # (Auto) 0.5 Eos # (Auto) 0.3 Baso # (Auto) 0.1 Immature Gran # (Auto) 0.06 H Absolute Nucleated RBC 0.00 Immature Gran % 1 H Nucleated RBC % 0 ESR 39 H PT INR APTT Puncture Site Right Radial ABG pH 7.36 ABG pCO2 47 ABG pO2 76 L ABG HCO3 26 ABG O2 Saturation 96 ABG Base Excess 1 FiO2 21 Sodium 136 Potassium 5.4 H D Chloride 100 Carbon Dioxide 29.6 Anion Gap 6 L BUN 45 H Creatinine 1.7 H Estim Creat Clear Calc 47.8 L eGFR 40 L BUN/Creatinine Ratio 26 H Glucose [address] Glu mg/dL 217 H Hemoglobin A1c 9.2 H Calculated Osmolality 295 Calcium 9.5 Corrected Calcium 9.6 Phosphorus 3.1 Magnesium 1.9 2.1 Total Bilirubin 0.3 AST 12 ALT 18 Alkaline Phosphatase 83 Troponin I C-Reactive Prot, Quant 0.9 B-Natriuretic Peptide 55 Total Protein 6.0 Albumin 3.9 Globulin 2.1 L Albumin/Globulin Ratio 1.9 Triglycerides 200 H Cholesterol 139 LDL Cholesterol, Calc 74 HDL Cholesterol 25 L Cholesterol/HDL Ratio 5.6 Procalcitonin 0.11 Ur Collection Type Urine Color Urine Clarity Urine pH Ur Specific [place] Urine Protein Urine Glucose (UA) Urine Ketones Urine Blood Urine Nitrite Urine Bilirubin Urine Urobilinogen (Auto) Ur Leukocyte Esterase Urine RBC Urine WBC Ur Squamous Epith Cells Urine Bacteria Hyaline Casts ABG Interpretation ABG results: 11/06/24 18:20 ABG pH 7.36 ABG pCO2 47 ABG pO2 76 L ABG HCO3 26 ABG O2 Saturation 96 ABG Base Excess 1 Quality Measures Quality Measures none Assessment & Plan Assessment Current Active Medications: Generic Name Dose Route Start Last Admin Trade Name Freq PRN Reason Stop Dose Admin Hydrocodone Bitart/Acetaminophen 1 tab 11/06/24 20:00 Hydrocodone/Apap 5/325 Tablet PO 11/11/24 19:59 Q4HR PRN PAIN SCALE 4-10(Mod-Sev Artificial Tears 1 drop 11/07/24 08:03 Artificial Tears 225 Drop/15 Ml Btl BOTH EYES 12/07/24 08:02 BID PRN Dry Eyes Aspirin 81 mg 11/07/24 09:00 Aspirin Ec 81 Mg Tabec PO 12/07/24 08:59 QDAY COLTEN Dextrose 25 ml 11/06/24 20:00 Dextrose 50%-Water Inj 50 Ml Syringe IV 12/06/24 19:59 Q15MIN PRN BG 50-70 responsive npo pt Dextrose 50 ml 11/06/24 20:00 Dextrose 50%-Water Inj 50 Ml Syringe IV 12/06/24 19:59 Q15MIN PRN BG <50 OR BG <70 & pt unresponsive Enoxaparin Sodium 40 mg 11/07/24 09:00 Enoxaparin Sod Inj 40 Mg/0.4 Ml Syringe SC 11/21/24 08:59 QDAY [facility] Gabapentin 300 mg 11/07/24 14:00 Gabapentin 300 Mg Capsule PO 12/07/24 13:59 TID COLTEN Glucagon 1 mg 11/06/24 20:00 Glucagon Inj 1 Mg Vial IM Q15MIN PRN BG <70, and no IV access Doxycycline Hyclate 100 mg/ 100 mls @ 100 mls/hr 11/06/24 21:00 11/06/24 20:53 Sodium Chloride IV 11/13/24 20:59 100 mls/hr BID COLTEN Administration Piperacillin Sod/Tazobactam 100 mls @ 200 mls/hr 11/06/24 22:00 11/07/24 05:29 Sod 4.5 gm/ Sodium Chloride IV 11/13/24 21:59 200 mls/hr Q8HR [facility] Administration Insulin Glargine 10 unit 11/06/24 21:00 11/06/24 20:52 Insulin Glargine (Lantus) 5 Unit/0.05 Ml (Per 5 Units) SC 12/06/24 20:59 10 unit HS [facility] Administration Insulin Human Lispro 5 unit 11/07/24 11:30 Insulin Lispro (Admelog) 1 Unit/0.01 Ml Unit SC 12/07/24 11:29 AC [facility] Insulin Human Lispro 0 unit 11/07/24 14:00 Insulin Lispro (Admelog) 1 Unit/0.01 Ml Unit SC 12/07/24 13:59 AC [facility] Protocol Ondansetron HCl 4 mg 11/06/24 20:00 Ondansetron Inj 2 Mg/Ml Inj 2 Ml IVP 12/06/24 19:59 Q6H PRN NAUSEA OR VOMITING Protocol Polyethylene Glycol 17 gm 11/07/24 09:00 Polyethylene Glycol 17 Gm Packet PO 12/07/24 08:59 QDAY [facility] Pramipexole Dihydrochloride 0.5 mg 11/07/24 09:00 Pramipexole 0.25 Mg Tablet PO 12/07/24 08:59 QDAY [facility] Sennosides 8.6 tab 11/07/24 09:00 Senna Tablet PO 12/07/24 08:59 BID [facility] Tamsulosin HCl 0.4 mg 11/07/24 21:00 Tamsulosin Hcl 0.4 Mg Capsule PO 12/07/24 20:59 HS COLTEN
--- NOTE | 2024-11-07 08:34 | ESCONSULT_ITS ---
HPI Data of Consult Consult date: 11/07/24 Requesting Physician: Kacie Herndon MD Admitting Provider: Rosita Cunha MD Attending Provider: Kacie Herndon MD Primary Care Provider: Physician No Primary/Family Consult Narrative Reason for consult: CHARLENE on CKD, edema History of present illness: Mr. 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 Santana, Chronic leg ulcers( seen [facility] [place]) currently in a [facility] in [place] who presented to the ED with bilateral lower extremity swelling and pain. Patient has a history of uncontrolled diabetes mellitus and CKD, creatinine seems to be at baseline. The patient does have some speech deficit following stroke, but is able to communicate and respond to simple questions. In the emergency room, Patient Was given IV ceftriaxone and insulin and [address] lower extremity showed cellulitis pattern both lower extremities, negative for osteomyelitis, heavy arterial calcification noted, venous Doppler negative for DVT., EKG showed sinus rhythm with first-degree AV block and ventricular bigeminy on telemetry, prior echocardiogram in 2021 showed EF 50%, patient was admitted to medical floor for management of cellulitis and bilateral lower extremity edema. Ultrasound abdomen was ordered. Nephrology was consulted for management of acute kidney injury and edema. Past medical history: As noted above cc:: cc: Kacie Herndon MD Review of Systems Review of Systems Systems Reviewed: All systems reviewed, normal except as documented Past Medical History Past Medical History NEUROLOGIC: Positive Neurological Disorders and Cerebrovascular Accident CARDIAC: Positive Cardiac Disorders and Hypertension; Negative Congestive Heart Failure RESPIRATORY: Negative Chronic Obstructive Pulmonary Disease (COPD) GASTROINTESTINAL: Positive Gastrointestinal Disorders and Obesity GENITOURINARY: Positive Genitourinary Disorders, Renal Disease and Dialysis MUSCULOSKELETAL: Positive Musculoskeletal Disorders ENT: Positive Blind ENDOCRINE: Positive Endocrine Disorders and Diabetes Mellitus Type 2; Negative Diabetes Mellitus Type 1 HEMATOLOGIC: Negative Blood Disorders OTHER HISTORY: Positive Hospitalization, Chicken Pox, Measles and Mumps; Negative Autoimmune Disease, Down Syndrome, Developmental Delay, Shingles, Falls, Blood Transfusions, Anesthesia Reactions, Organ Transplant, MRSA, VRSA, Clostridium Difficile or Cancer Surgical History SURGICAL: Positive Coronary Stent, Abdominal Surgery, Tracheostomy and Joint Replacement; Negative Endocrine Surgery, Ear Surgery, Nephrectomy, Neurologic Surgery, Brain Shunt, Mastectomy, Vasectomy or Organ Transplant Social History SMOKING STATUS: Never smoker SECOND HAND EXPOSURE: No SUBSTANCE USE: does not use Exam Vital Signs Temp Pulse Resp BP Pulse Ox O2 Del Method 97.2 F 79 18 165/78 H 97 Room Air 11/07/24 08:00 11/07/24 08:00 11/07/24 08:00 11/07/24 08:00 11/07/24 08:00 11/07/24 05:59 Narrative Exam General: A/O x3, no acute distress. Heavy set man Eyes: Legally blind, anicteric Ears: No ear pain, no ear discharge, Hearing grossly intact. Nose: No nasal discharge. Mouth/Throat: Dry mucous membranes, no redness, no lesions. Neck: Neck supple, non-tender, no cervical lymphadenopathy. Lungs: Clear JAGDEEP to auscultation and percussion, No accessory muscle use. Cardio: Normal S1/S2, regular rhythm, no murmurs, no JVD or carotid bruits. Abdomen: Soft, non-tender, no palpable masses, peristalsis present, no guarding or rebound. Extremities: Symmetrical, no significant deformities, 3+ peripheral edema and blanching erythema with an ulcer in medial L LE without any discharge, non- tender, peripheral pulses presents. Skin: Stasis dermatitis in legs Neuro: Aphasia noted, moving all extremities, but JAGDEEP LE weak. able to answe all question appropriately and follow commands. Results Labs 11/07/24 04:50 11/07/24 12:07 Labs: Short CBC 11/06/24 11/07/24 Range/Units 14:53 04:50 WBC 6.5 6.8 (3.8-10.6) Thou/mm3 Hgb 12.5 L 13.1 L (13.5-16.0) g/dL Hct 35.4 L 37.8 L (41.0-53.0) % Plt Count 138 L 123 L (140-440) Thou/mm3 BMP 11/06/24 11/06/24 11/07/24 14:53 18:09 04:50 Sodium 131 L 132 L 136 Potassium 5.0 4.9 5.4 H D Chloride 96 L 97 L 100 Carbon Dioxide 27.4 29.7 29.6 BUN 53 H 51 H 45 H Creatinine 2.1 H 2.0 H 1.7 H Glucose 523 H* 398 H D 315 H D Calcium 9.1 8.8 9.5 Cardiac Enzymes 11/06/24 Range/Units 14:53 Troponin I < 0.020 (0.0-0.045) ng/mL Liver Function 11/06/24 11/06/24 11/07/24 Range/Units 14:53 18:09 04:50 Total Bilirubin 0.3 0.3 (0.3-1.2) mg/dL AST 13 12 (0-34) U/L ALT 20 18 (10-49) U/L Alkaline Phosphatase 84 83 (46-116) U/L Albumin 3.9 3.9 3.9 (3.4-4.8) gm/dL Urine 11/06/24 Range/Units 16:00 Urine Color Lt-Yellow (Lt Yel-Yel) Urine Clarity Clear (Clear/Hazy) Urine pH 6.5 (5.0-7.0) Ur Specific [place] 1.014 (1.001-1.035) Urine Protein Trace (Neg - Trace) Urine Glucose (UA) 3+ A (Negative) ABG Interpretation ABG results: 11/06/24 18:20 ABG pH 7.36 ABG pCO2 47 ABG pO2 76 L ABG HCO3 26 ABG O2 Saturation 96 ABG Base Excess 1 Quality Measures Quality Measures none Advance care planning discussed with:: patient Medications Home Medications and Allergies Home Medications ?Medication ?Instructions ?Recorded ?Confirmed ?Type acetaminophen 650 mg tablet 650 mg PO Q6H PRN Pain (Sc kala 06/26/21 11/07/24 History Score 1-3) allopurinol 300 mg tablet 300 mg PO QDAY 06/26/21 06/09/08 History aspirin 81 mg tablet 81 mg PO QDAY 06/26/2111/07 History baclofen 10 mg tablet 10 mg PO TID PRN Muscle Spas m 06/26/21 11/07/24 History bisacodyl 10 mg rectal suppository See Rx Instructions .Route 06/26/21 11/07/24 History (Dulcolax (bisacodyl)) .COMPLEX PRN Constipation carboxymethylcellulose sodium 1 % 1 drp ophthalmic (ey e) BID PRN Dry 06/26/21 11/07/24 History eye drops (Artificial Tears Eyes (carboxymethylcellulose)) diclofenac sodium 1 % topical gel 2 g topical BID PRN Pain 06/26/21 11/07/24 History docusate sodium 100 mg capsule 200 mg PO BID Constipat ion 06/26/21 11/07/24 History (Colace) gabapentin 300 mg capsule 300 mg PO TID 06/26/2111/07 History metoprolol tartrate 25 mg tablet 50 mg PO BID 06/26/21 11/07/24 History polyethylene glycol 3350 17 gram 17 g PO QDAY Constipa tion 06/26/21 11/07/24 History oral powder packet pramipexole 0.5 mg tablet 0.5 mg PO QDAY 06/26/2110/16 History rivaroxaban 15 mg tablet (Xarelto) 15 mg PO QDAY 06/2611/07/24 History sennosides 8.6 mg capsule (senna) 8.6 mg PO BID Consti pation 06/26/21 11/07/24 History spironolactone 25 mg tablet 25 mg PO QDAY 06/26/21 History tamsulosin 0.4 mg capsule 0.4 mg PO HS 06/26/21 History tramadol 50 mg tablet 50 mg PO Q6H PRN Pain (Scale Score 06/26/21 11/07/24 History 4-6) vitamin B complex-vitamin C-folic 1 tab PO QDAY 11/07/24 History acid 0.8 mg tablet (Vicki-Tanesha) calcium 600 mg (as 1 tab PO BID 12/16/23 History carbonate)-vitamin D3 10 mcg (400 unit) tablet glipizide 5 mg tablet 5 mg PO BID 12/16/23 5 History insulin glargine 100 unit/mL 13 unit subcut HS 4 11/07/24 History subcutaneous solution lactulose 20 gram/30 mL oral 30 ml PO QDAY 12/16/23 History solution nitroglycerin 0.4 mg sublingual 0.4 mg buccal [id number] PRN Chest 12/16/23 11/07/24 History tablet Pain oxycodone 5 mg tablet 5 mg PO Q12H PRN chronic natasha n 12/16/23 11/07/24 History valsartan 40 mg tablet 40 mg PO QDAY 12/16/2311/07 History Cephalexin capsule 500 mg 500 mg PO TID recurrent cell ulitis 11/07/24 11/07/24 History bilateral lower ext for 7days Humalog Solution 7 unit subcut AC TYPE 2 DIAB ETES 11/07/24 11/07/24 History MELLITUS Allergies Allergy/AdvReac Type Severity Reaction Status Date / Time Fish Containing Products Allergy Verified 12/16/23 00:22 Visit Medications Hydrocodone Bitart/Acetaminophen (Hydrocodone/Apap 5/325 Tablet) 1 tab PO Q4HR PRN PRN Reason: PAIN SCALE 4-10(Mod-Sev Stop: 11/11/24 19:59 Artificial Tears (Artificial Tears 225 Drop/15 Ml Btl) 1 drop BOTH EYES BID PRN PRN Reason: Dry Eyes Stop: 12/07/24 08:02 Aspirin (Aspirin Ec 81 Mg Tabec) 81 mg PO QDAY REPLACED BY [facility] Stop: 12/07/24 08:59 Dextrose (Dextrose 50%-Water Inj 50 Ml Syringe) 25 ml IV Q15MIN PRN PRN Reason: BG 50-70 responsive npo pt Stop: 12/06/24 19:59 Dextrose (Dextrose 50%-Water Inj 50 Ml Syringe) 50 ml IV Q15MIN PRN PRN Reason: BG <50 OR BG <70 & pt unresponsive Stop: 12/06/24 19:59 Enoxaparin Sodium (Enoxaparin Sod Inj 40 Mg/0.4 Ml Syringe) 40 mg SC QDAY REPLACED BY [facility] Stop: 11/21/24 08:59 Gabapentin (Gabapentin 300 Mg Capsule) 300 mg PO TID COLTEN Stop: 12/07/24 13:59 Glucagon (Glucagon Inj 1 Mg Vial) 1 mg IM Q15MIN PRN PRN Reason: BG <70, and no IV access Doxycycline Hyclate 100 mg/ (Sodium Chloride) 100 mls @ 100 mls/hr IV BID COLTEN Stop: 11/13/24 20:59 Last Admin: 11/06/24 20:53 Dose: 100 mls/hr Piperacillin Sod/Tazobactam (Sod 4.5 gm/ Sodium Chloride) 100 mls @ 200 mls/hr IV Q8HR COLTEN Stop: 11/13/24 21:59 Last Admin: 11/07/24 05:29 Dose: 200 mls/hr Insulin Glargine (Insulin Glargine (Lantus) 5 Unit/0.05 Ml (Per 5 Units)) 10 unit SC HS REPLACED BY [facility] Stop: 12/06/24 20:59 Last Admin: 11/06/24 20:52 Dose: 10 unit Insulin Human Lispro (Insulin Lispro (Admelog) 1 Unit/0.01 Ml Unit) 5 unit SC AC COLTEN Stop: 12/07/24 11:29 Insulin Human Lispro (Insulin Lispro (Admelog) 1 Unit/0.01 Ml Unit) 0 unit SC AC REPLACED BY [facility]; Protocol Stop: 12/07/24 13:59 Ondansetron HCl (Ondansetron Inj 2 Mg/Ml Inj 2 Ml) 4 mg IVP Q6H PRN; Protocol PRN Reason: NAUSEA OR VOMITING Stop: 12/06/24 19:59 Polyethylene Glycol (Polyethylene Glycol 17 Gm Packet) 17 gm PO QDAY COLTEN Stop: 12/07/24 08:59 Pramipexole Dihydrochloride (Pramipexole 0.25 Mg Tablet) 0.5 mg PO QDAY REPLACED BY [facility] Stop: 12/07/24 08:59 Sennosides (Senna Tablet) 8.6 tab PO BID COLTEN Stop: 12/07/24 08:59 Tamsulosin HCl (Tamsulosin Hcl 0.4 Mg Capsule) 0.4 mg PO [facility] Stop: 12/07/24 20:59 Discontinued Medications Heparin Sodium (Porcine) (Heparin Sod Inj 5000 Unit/Ml Vial) 5,000 unit SC Q8HR COLTEN Stop: 11/20/24 21:59 Sodium Chloride (Ns) 1,000 mls @ 999 mls/hr IV .Q1H1M ONE Stop: 11/06/24 16:43 Last Infusion: 11/06/24 17:24 Dose: Infused Ceftriaxone Sodium 2 gm/ (Sodium Chloride) 50 mls @ 100 mls/hr IV X1 ONE Stop: 11/06/24 17:21 Last Infusion: 11/06/24 18:30 Dose: Infused Magnesium Sulfate (Magnesium Sulfate Ivpb) 2 gm in 50 mls @ 25 mls/hr IV X1 ONE Stop: 11/06/24 22:40 Last Admin: 11/06/24 20:55 Dose: 25 mls/hr Insulin Glargine (Insulin Glargine (Lantus) 5 Unit/0.05 Ml (Per 5 Units)) 5 unit SC X1 ONE Stop: 11/07/24 08:01 Insulin Human Lispro (Insulin Lispro (Admelog) 1 Unit/0.01 Ml Unit) 0 unit SC ACHS COLTEN; Protocol Stop: 12/06/24 20:59 Insulin Human Lispro (Insulin Lispro (Admelog) 1 Unit/0.01 Ml Unit) 0 unit SC AC COLTEN; Protocol Stop: 12/07/24 07:29 Insulin Human Lispro (Insulin Lispro (Admelog) 1 Unit/0.01 Ml Unit) 0 unit SC AC COLTEN; Protocol Stop: 12/07/24 07:29 Insulin Human Regular (Insulin Hum Regular 1 Unit/0.01 Ml (Per Unit)) 12 unit SC X1 ONE Stop: 11/06/24 15:44 Last Admin: 11/06/24 16:15 Dose: 12 unit Insulin Human Regular (Insulin Hum Regular 1 Unit/0.01 Ml (Per Unit)) 5 unit IV X1 ONE Stop: 11/07/24 08:08 Assessment & Plan Problem List (1) CKD (chronic kidney disease): Status: Acute Assessment and plan: Patient has history of 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 Noted significant edema in the lower extremities-most likely dependent edema. Rule out MALDONADO and liver cirrhosis. ? Follow-up ultrasound abdomen - ? Avoid nephrotoxic drugs ? Continue home medications valsartan 40 mg and Bumex 2 mg daily, Vicki-Tanesha. ? Hold spironolactone due to hyperkalemia. (2) Hyperkalemia: Status: Acute Assessment and plan: Potassium 5.4, mild hypokalemia, no EKG changes consistent with hyperkalemia, but did not note first-degree AV block and bigeminy pattern. ? Patient takes spirolactone at home, will hold spironolactone for now. Can continue valsartan, continue monitoring electrolytes and daily labs. (3) Cellulitis: Status: Acute Assessment and plan: Noticed to have 2 weeks of bilateral lower extremity swelling, reportedly had blisters during an outpatient visit, now improvement in swelling is noted but still has erythematous rash and over the medial aspect of left lower extremity from venous insufficiency. Also diabetes mellitus at risk of worsening infection, patient will be started on Zosyn and doxycycline for management of cellulitis. ?Management per primary team (4) UTI (urinary tract infection): Status: Acute Assessment and plan: Urinalysis shows UTI, currently on Zosyn and doxycycline, adequate coverage for UTI, follow urine cultures ? Management per primary team (5) Diabetes: Status: Acute Assessment and plan: Patient has longstanding history of diabetes, likely uncontrolled A1c 9%, takes insulin Lantus 13 units nightly and sliding scale insulin regular premeals. ? Management per primary team Assessment Patient seen and examined with resident physician Dr. Chatman. Note reviewed, agree with findings and recommendations with the few changes made. Well-known to me from my CKD clinic for more than 15 years. Agree with diuretics. His edema is markedly improved compared to when I saw him 2 weeks ago. Continue with antibiotics and leg elevation. Spoke to wound care for a salve for superficial stasis dermatitis. Thank you Dr. Herndon for allowing me to participate in the care of Mr. Hinojosa. Plan Plan of care discussed with Dr. Jessi Chatman PGY2
[2024-11-07] MEDS: INSULIN GLARGINE (Lantus) 5 UNIT/0.05 ML (PER 5 UNITS) SC (09:15)
[2024-11-07] MEDS: INSULIN HUM REGULAR 1 UNIT/0.01 ML (PER UNIT) 5 UNIT IV (09:16)
[2024-11-07] MEDS: SENNA TABLET 8.6 TAB PO (09:17)
[2024-11-07] MEDS: VALSARTAN 40 MG TABLET PO (09:17)
[2024-11-07] MEDS: PRAMIPEXOLE 0.25 MG TABLET 0.5 MG PO (09:17)
[2024-11-07] MEDS: allopurinoL 100 MG TABLET 300 MG PO (09:17)
[2024-11-07] MEDS: METOPROLOL TARTRATE 25 MG TABLET 50 MG PO ×2 (09:18→20:10)
[2024-11-07] MEDS: BUMETANIDE 0.5 MG TABLET 2 MG PO (09:18)
[2024-11-07] MEDS: VIT B12/Vit C/FA (Nephrovite) TABLET 1 TAB PO (09:19)
[2024-11-07] MEDS: ASPIRIN EC 81 MG TABEC PO (09:19)
[2024-11-07] MEDS: DOXYCYCLINE INJ 100 MG in SODIUM CHLORIDE 0.9% (POP) 100 ML IV ×2 (09:19→20:22)
[2024-11-07] MEDS: DOCUSATE SOD 100 MG CAPSULE 200 MG PO (09:19)
[2024-11-07] MEDS: POLYETHYLENE GLYCOL 17 GM PACKET PO (09:19)
--- NOTE | 2024-11-07 10:18 | PC.SS ---
Initial assessment: patient is an 78-year old male from [facility] in [place]. Per patient he is a fci resident at [facility]. It should be noted the patient is blind. Patient informs he has been wheelchair bound for the last two years. Patient denies use of oxygen. Informs he uses a wheelchair at the facility to transfer and has been non-ambulatory. Patient does not recall his PCP provider at the facility. Patient indicates he will return back to facility at discharge. Per patient in case of an emergency, his brother Melvin Hinojosa should be contacted. Next of kin: brotherRobbin D/c plan: return to [facility]
[2024-11-07] MEDS: INSULIN HUM REGULAR 1 UNIT/0.01 ML (PER UNIT) 10 UNIT IV (10:58)
--- NOTE | 2024-11-07 11:03 | ESPR_ITS ---
<Statement entered by Kacie Herndon MD - 11/16/24 07:47> I reviewed above note and agree with findings and plans. I have also personally examined the patient with medicine team and went over assessment and plan with medical team including graduate intern and resident physician. Documentation for date of: 11/07/24 Subjective Subjective Interval history: Patient seen and examined at bedside. Resting comfortably in bed, currently has no complaints. Admitted overnight for bilateral lower extremity edema and acute kidney injury. Bilateral lower extremity ultrasound rule out DVT, Lower extremity CT shows cellulitis pattern both lower extremities. Abdominal ultrasound shows cirrhosis with noted hepatomegaly, patient has no history of cirrhosis.-High suspicion of MASLD secondary to uncontrolled diabetes and hyperlipidemia. Labs and vitals reviewed this morning potassium 5.4, patient will be given treatment for hyperkalemia protocol. Patient's insulin regimen changed to 18 units glargine at bedtime and 5 units 3 times daily. Home medications reconciled. Nephrology consulted resumed home dose Bumex. Exam Vital Signs Temp Pulse Resp BP Pulse Ox O2 Del Method 97.2 F 79 18 165/78 H 97 Room Air 11/07/24 08:00 11/07/24 09:18 11/07/24 08:00 11/07/24 09:18 11/07/24 08:00 11/07/24 05:59 Narrative Exam General: A/O x3, no acute distress Eyes: Legally blind, anicteric Ears: No ear pain, no ear discharge, Hearing grossly intact. Nose: No nasal discharge. Mouth/Throat: Dry mucous membranes, no redness, no lesions. Neck: Neck supple, non-tender, no cervical lymphadenopathy. Lungs: Clear JAGDEEP to auscultation and percussion, No accessory muscle use. Cardio: Normal S1/S2, regular rhythm, no murmurs, no JVD or carotid bruits. Abdomen: Soft, non-tender, no palpable masses, peristalsis present, no guarding or rebound. Extremities: Symmetrical, no significant deformities, 2+ peripheral edema and blanching erythema with an ulcer in medial L LE without any discharge, non- tender, peripheral pulses presents. Skin: No other rashes or lesions, warm to touch. Neuro: Aphasia noted, moving all extremities, but JAGDEEP LE weak. able to answe all question appropriately and follow commands. Objective Labs 11/07/24 04:50 06/24/25 12:07 Labs: Laboratory Results - last 24 hr 11/06/24 11/06/24 11/06/24 14:53 16:00 18:09 WBC 6.5 RBC 3.87 L Hgb 12.5 L Hct 35.4 L MCV 92 MCH 32.3 MCHC 35.3 RDW Std Deviation 49.9 H Plt Count 138 L Neut % (Auto) 64 Lymph % (Auto) 24 [place] % (Auto) 7 Eos % (Auto) 3 Baso % (Auto) 1 Neut # (Auto) 4.1 Lymph # (Auto) 1.6 [place] # (Auto) 0.5 Eos # (Auto) 0.2 Baso # (Auto) 0.0 Immature Gran # (Auto) 0.07 H Absolute Nucleated RBC 0.00 Immature Gran % 1 H Nucleated RBC % 0 ESR PT 11.9 INR 1.1 APTT 27.2 Puncture Site ABG pH ABG pCO2 ABG pO2 ABG HCO3 ABG O2 Saturation ABG Base Excess FiO2 Sodium 131 L 132 L Potassium 5.0 4.9 Chloride 96 L 97 L Carbon Dioxide 27.4 29.7 Anion Gap 8 5 L BUN 53 H 51 H Creatinine 2.1 H 2.0 H Estim Creat Clear Calc 38.3 L 40.2 L eGFR 31 L 33 L BUN/Creatinine Ratio 25 H 26 H Glucose 523 H* [address] Glu mg/dL Hemoglobin A1c Calculated Osmolality 301 H 295 Calcium 9.1 8.8 Corrected Calcium 9.2 8.9 Phosphorus 4.0 Magnesium Total Bilirubin 0.3 AST 13 ALT 20 Alkaline Phosphatase 84 Troponin I < 0.020 C-Reactive Prot, Quant B-Natriuretic Peptide Total Protein 6.0 Albumin 3.9 3.9 Globulin 2.1 L Albumin/Globulin Ratio 1.9 Triglycerides Cholesterol LDL Cholesterol, Calc HDL Cholesterol Cholesterol/HDL Ratio Procalcitonin Ur Collection Type Clean Catch Urine Color Lt-Yellow Urine Clarity Clear Urine pH 6.5 Ur Specific [place] 1.014 Urine Protein Trace Urine Glucose (UA) 3+ A Urine Ketones Negative Urine Blood Negative Urine Nitrite Negative Urine Bilirubin Negative Urine Urobilinogen (Auto) Negative Ur Leukocyte Esterase Positive Urine RBC 4 H Urine WBC 43 H Ur Squamous Epith Cells < 1 Urine Bacteria None Hyaline Casts < 1 11/06/24 11/06/24 11/07/24 18:20 20:14 04:50 WBC 6.8 RBC 4.14 L Hgb 13.1 L Hct 37.8 L MCV 91 MCH 31.6 MCHC 34.7 RDW Std Deviation 48.6 H Plt Count 123 L Neut % (Auto) 57 Lymph % (Auto) 28 [place] % (Auto) 8 Eos % (Auto) 5 Baso % (Auto) 1 Neut # (Auto) 3.9 Lymph # (Auto) 1.9 [place] # (Auto) 0.5 Eos # (Auto) 0.3 Baso # (Auto) 0.1 Immature Gran # (Auto) 0.06 H Absolute Nucleated RBC 0.00 Immature Gran % 1 H Nucleated RBC % 0 ESR 39 H PT INR APTT Puncture Site Right Radial ABG pH 7.36 ABG pCO2 47 ABG pO2 76 L ABG HCO3 26 ABG O2 Saturation 96 ABG Base Excess 1 FiO2 21 Sodium 136 Potassium 5.4 H D Chloride 100 Carbon Dioxide 29.6 Anion Gap 6 L BUN 45 H Creatinine 1.7 H Estim Creat Clear Calc 47.8 L eGFR 40 L BUN/Creatinine Ratio 26 H Glucose [address] Glu mg/dL 217 H Hemoglobin A1c 9.2 H Calculated Osmolality 295 Calcium 9.5 Corrected Calcium 9.6 Phosphorus 3.1 Magnesium 1.9 2.1 Total Bilirubin 0.3 AST 12 ALT 18 Alkaline Phosphatase 83 Troponin I C-Reactive Prot, Quant 0.9 B-Natriuretic Peptide 55 Total Protein 6.0 Albumin 3.9 Globulin 2.1 L Albumin/Globulin Ratio 1.9 Triglycerides 200 H Cholesterol 139 LDL Cholesterol, Calc 74 HDL Cholesterol 25 L Cholesterol/HDL Ratio 5.6 Procalcitonin 0.11 Ur Collection Type Urine Color Urine Clarity Urine pH Ur Specific [place] Urine Protein Urine Glucose (UA) Urine Ketones Urine Blood Urine Nitrite Urine Bilirubin Urine Urobilinogen (Auto) Ur Leukocyte Esterase Urine RBC Urine WBC Ur Squamous Epith Cells Urine Bacteria Hyaline Casts ABG Interpretation ABG results: 11/06/24 18:20 ABG pH 7.36 ABG pCO2 47 ABG pO2 76 L ABG HCO3 26 ABG O2 Saturation 96 ABG Base Excess 1 Quality Measures Quality Measures none Advance care planning discussed with:: patient Assessment & Plan Assessment Current Active Medications: Generic Name Dose Route Start Last Admin Trade Name Freq PRN Reason Stop Dose Admin Hydrocodone Bitart/Acetaminophen 1 tab 11/06/24 20:00 Hydrocodone/Apap 5/325 Tablet PO 11/11/24 19:59 Q4HR PRN PAIN SCALE 4-10(Mod-Sev Allopurinol 300 mg 11/07/24 09:00 11/07/24 09:17 Allopurinol 100 Mg Tablet PO 12/07/24 08:59 300 mg QDAY COLTEN Administration Artificial Tears 1 drop 11/07/24 08:03 Artificial Tears 225 Drop/15 Ml Btl BOTH EYES 12/07/24 08:02 BID PRN Dry Eyes Aspirin 81 mg 11/07/24 09:00 11/07/24 09:19 Aspirin Ec 81 Mg Tabec PO 12/07/24 08:59 81 mg QDAY COLTEN Administration Baclofen 10 mg 11/07/24 08:55 Baclofen 10 Mg Tablet PO 12/07/24 08:54 TID PRN Muscle Spasm Bumetanide 2 mg 11/07/24 09:00 11/07/24 09:18 Bumetanide 0.5 Mg Tablet PO 12/07/24 08:59 2 mg QDAY COLTEN Administration Dextrose 25 ml 11/06/24 20:00 Dextrose 50%-Water Inj 50 Ml Syringe IV 12/06/24 19:59 Q15MIN PRN BG 50-70 responsive npo pt Dextrose 50 ml 11/06/24 20:00 Dextrose 50%-Water Inj 50 Ml Syringe IV 12/06/24 19:59 Q15MIN PRN BG <50 OR BG <70 & pt unresponsive Docusate Sodium 200 mg 11/08/24 09:00 Docusate Sod 100 Mg Capsule PO 12/07/24 08:59 BID [facility] Protocol Gabapentin 300 mg 11/07/24 14:00 Gabapentin 300 Mg Capsule PO 12/07/24 13:59 TID COLTEN Glucagon 1 mg 11/06/24 20:00 Glucagon Inj 1 Mg Vial IM Q15MIN PRN BG <70, and no IV access Doxycycline Hyclate 100 mg/ 100 mls @ 100 mls/hr 11/06/24 21:00 11/07/24 09:19 Sodium Chloride IV 11/13/24 20:59 100 mls/hr BID COLTEN Administration Piperacillin Sod/Tazobactam 100 mls @ 200 mls/hr 11/06/24 22:00 11/07/24 05:29 Sod 4.5 gm/ Sodium Chloride IV 11/13/24 21:59 200 mls/hr Q8HR COLTEN Administration Insulin Glargine 10 unit 11/06/24 21:00 11/06/24 20:52 Insulin Glargine (Lantus) 5 Unit/0.05 Ml (Per 5 Units) SC 12/06/24 20:59 10 unit HS COLTEN Administration Insulin Human Lispro 5 unit 11/07/24 11:30 Insulin Lispro (Admelog) 1 Unit/0.01 Ml Unit SC 12/07/24 11:29 AC [facility] Insulin Human Lispro 0 unit 11/07/24 14:00 Insulin Lispro (Admelog) 1 Unit/0.01 Ml Unit SC 12/07/24 13:59 [facility] Protocol Metoprolol Tartrate 50 mg 11/07/24 09:00 11/07/24 09:18 Metoprolol Tartrate 25 Mg Tablet PO 12/07/24 08:59 50 mg BID COLTEN Administration Ondansetron HCl 4 mg 11/06/24 20:00 Ondansetron Inj 2 Mg/Ml Inj 2 Ml IVP 12/06/24 19:59 Q6H PRN NAUSEA OR VOMITING Protocol Polyethylene Glycol 17 gm 11/07/24 09:00 11/07/24 09:19 Polyethylene Glycol 17 Gm Packet PO 12/07/24 08:59 17 gm QDAY COLTEN Administration Pramipexole Dihydrochloride 0.5 mg 11/07/24 09:00 11/07/24 09:17 Pramipexole 0.25 Mg Tablet PO 12/07/24 08:59 0.5 mg QDAY COLTEN Administration Rivaroxaban 10 mg/ Rivaroxaban 15 mg 11/07/24 17:30 5 mg PO 12/07/24 17:29 WSUPPER [facility] Sennosides 1 tab 11/08/24 09:00 Senna Tablet PO 12/07/24 20:59 BID COLTEN Tamsulosin HCl 0.4 mg 11/07/24 21:00 Tamsulosin Hcl 0.4 Mg Capsule PO 12/07/24 20:59 HS [facility] Valsartan 40 mg 11/07/24 09:00 11/07/24 09:17 Valsartan 40 Mg Tablet PO 12/07/24 08:59 40 mg QDAY COLTEN Administration Vitamin B Complex/Vit C/Folic Acid 1 tab 11/07/24 09:00 11/07/24 09:19 Vit B12/Vit C/Fa (Nephrovite) Tablet PO 12/07/24 08:59 1 tab QDAY COLTEN Administration Plan 78-year-old male wheelchair-bound and legally blind male with past medical history of 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 #Bilateral lower extremity erythema #Bilateral lower extremity cellulitis #Chronic leg edema, PAD by history Patient noticed around 1 week of erythema in bilateral lower extremities Patient's last echo on 2021 was EF of 55% Patient has chronic lower extremity swelling, but on assessment had a blanching erythematous rash with a wound on the medial aspect of the left lower extremity likely from venous insufficiency. Patient hide risk for infection being bedbound and history of DM2 Bilateral lower extremity ultrasound negative for DVT. Lower extremity CT shows cellulitis pattern in both lower extremities. ESR 39 CRP, BNP within normal limits Plan: -Continue doxycycline and Zosyn (11/06- -resume home dose Bumex 2 mg p.o. -follow blood cultures -Referral to wound care -Strict MAXINE's and daily weights #CHARLENE on CKD Patient has a history of CKD and baseline creatinine is around 1.8 and on admission was 2.1 with improved with some fluids to 2. Patient is currently not on hemodialysis Abdominal ultrasound: Cirrhosis with moderate hepatomegaly, Normal gallbladder, Bilateral renal cortical thinning, Moderate bilateral renal parenchymal scar formation Plan: -Started on home dose Bumex 2 mg p.o. 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 Patient's last echo showed an EF of 55% with mitral and tricuspid valve regurgitation Patient's potassium was 4.9 EKG showed first-degree AV block Plan: - Patient was given acute hyperkalemia treatment x 1, repeat potassium 4.5 - Will keep potassium more than 4 and magnesium more than 2 - Telemetry monitoring - Hold home dose spironolactone #Poorly controlled type 2 diabetes mellitus #Hyperlipidemia 11/07- hemoglobin A1c 9.2 On admission patient's blood sugar was 523 Got 12 units of regular insulin subcu in the ED Triglyceride 200, cholesterol 139, LDL 74, HDL 25 Plan: -Optimize glargine to 18 units at bedtime, will titrate -Insulin 5 units AC -Sliding scale insulin -Hypoglycemia protocol #Cirrhosis #Thrombocytopenia #Suspicion of Metabolic dysfunction-associated steatotic liver disease Abdominal ultrasound shows cirrhosis with noted hepatomegaly, patient has no history of cirrhosis.-High suspicion of MASLD secondary to uncontrolled diabetes and hyperlipidemia. Abdominal ultrasound: Cirrhosis with moderate hepatomegaly, Normal gallbladder, Bilateral renal cortical thinning, Moderate bilateral renal parenchymal scar formation Plan: - Follow hepatitis panel in a.m. - Follow iron panel in AM #Hypertension #Constipation #Benign prostate hypertrophy #Gout #Muscle spasms, chronic pain #Hx of CVA with residual aphasia #Hx of blindness - Resumed home dose aspirin, Xarelto, gabapentin, artificial tears, metoprolol tartrate, bowel regimen and valsartan - Adjusted allopurinol renally Disposition: Patient admitted to [facility] for LE erythema. Diet: Renal GI prophylaxis: not indicated DVT prophylaxis: Xarelto Code: Full Code Case discussed with Attending Dr. Herndon. Melyssa Francis PGY1 Disclaimer: This note was dictated by speech recognition. Minor errors in grab jack man may be present due to voice recognition software.
[2024-11-07 13:06] LABS: Albumin, Serum 3.8 gm/dL (3.4-4.8); Anion Gap 5 (7-16); BUN/Creatinine Ratio 22 Ratio (12-20); Blood Urea Nitrogen 37 mg/dL (9-23); Calcium 9.3 mg/dL (8.3-10.6); Calcium (Corrected) 9.5 mg/dL (8.5-10.1); Chloride 103 mMol/L (98-107); Creatinine (Component) 1.7 mg/dL (0.6-1.3); Estimated Creatinine Clearance 47.8 mL/min (>60); Glucose 221 mg/dL (74-106); Osmolality,Calculated 291 (275-295); Phosphorous 2.8 mg/dL (2.4-5.1); Potassium 4.5 mMol/L (3.4-5.1); Sodium 138 mMol/L (136-145); eGFR 40 See Note
[2024-11-07] MEDS: PIPER/TAZO 3.375 GM PREMIX 3.375 GM/50 ML BAG IV ×2 (13:46→21:28)
[2024-11-07] MEDS: GABAPENTIN 300 MG CAPSULE PO ×2 (13:46→21:24)
--- NOTE | 2024-11-07 15:11 | PC.SS ---
Rounding note: patient is receiving IV antibiotics, on IV diuretics.
[2024-11-07] MEDS: RIVAROXABAN 10 MG, RIVAROXABAN 5 MG 15 MG PO (17:30)
[2024-11-07] MEDS: INSULIN LISPRO (AdmeLOG) 1 UNIT/0.01 ML UNIT SC (17:31)
[2024-11-07] MEDS: COLLAGENASE OINT 30 GM TUBE TOP (18:20)
--- NOTE | 2024-11-07 20:04 | ECHO_ITS ---
Transthoracic Echo Report Ht (in): 74 Wt (lb): 265 Exam Location: Echo Lab Status: Inpatient Agronomy Advisor: Ed Linda Indications: Procedure Performed: BP: 139 / 86 HR: 79 Technical Quality: Technically Difficult-Patient Supine/Unable to Lay on Left Side MEASUREMENTS (Male / Female) Normal Values DOPPLER AV Peak Velocity 92.8 cm/s AV Peak Gradient 3.4 mmHg LVOT Peak Velocity 89.8 cm/s LVOT Peak Gradient 3.2 mmHg PV Peak Velocity 103.3 cm/s PV Peak Gradient 4.3 mmHg FINDINGS Left Ventricle Normal left ventricular systolic function. Estimated EF 65-70%. Unable to measure wall thickness due to poor acoustic windows/images. Right Ventricle The right ventricle is not well visualized. Left Atrium The left atrium is not well visualized. Right Atrium The right atrium is not well visualized. Atrial Septum The interatrial septum appears normal with no evidence of a shunt. Aorta The aorta is normal by two-dimensional, color flow and Doppler interrogation. Mitral Valve The mitral valve is normal by two-dimensional, color flow and Doppler interrogation. There is no significant mitral valve regurgitation, stenosis or prolapse. Aortic Valve The aortic valve is trileaflet and normal by two-dimensional, color flow and Doppler interrogation. There is no significant aortic valve regurgitation. Tricuspid Valve The tricuspid valve is not well visualized. Pulmonic Valve The pulmonic valve is not well visualized. There is no significant pulmonic valve regurgitation. Vessels The pulmonary artery appears normal. The inferior vena cava pulmonary and hepatic veins are not well visualized. Pericardium The pericardium is normal by two-dimensional imaging. There is no significant pericardial effusion. CONCLUSIONS Indications: Bilateral Lower Extremity Edema Technically Difficult Study. Poor quality images Normal LV Systolic Function with estimated EF of 65-70%. Possible normal Rv size and function. unable to comment on valvular or any other pathology due to the images. Royal Mahajan (Electronically Signed) Final Date: 08 November 2024 17:52
[2024-11-07] MEDS: TAMSULOSIN HCL 0.4 MG CAPSULE PO (20:10)
[2024-11-07] MEDS: INSULIN GLARGINE (Lantus) 5 UNIT/0.05 ML (PER 5 UNITS) 18 UNIT SC (21:26)
[2024-11-08] VITALS (16 sets, daily range): BP systolic 134–178; BP diastolic 75–101; PULSE 65–82; RESP 18–95; TEMP 36.1–36.6; O2SAT 92–95; BMI 34.0
[2024-11-08] MEDS: GABAPENTIN 300 MG CAPSULE PO ×3 (05:20→21:50)
[2024-11-08] MEDS: PIPER/TAZO 3.375 GM PREMIX 3.375 GM/50 ML BAG IV ×3 (05:22→21:51)
[2024-11-08 06:04] LABS: Basophils # (Auto) 0.1 Thou/mm3 (0.0-0.2); Basophils % (Auto) 1 % (0-2.5); Eosinophils # (Auto) 0.3 Thou/mm3 (0.0-0.5); Eosinophils % (Auto) 4 % (0-10); Hemoglobin 13.3 g/dL (13.5-16.0); Immature Granulocytes % (Auto) 1 % (0-0); Immature Granulocytes Auto 0.07 Thou/mm3 (0.00-0.00); Lymphocytes # (Auto) 1.9 Thou/mm3 (1.0-4.8); Lymphocytes % (Auto) 27 % (10-50); Mean Corpuscular Hemoglobin 32.1 pg (25.0-35.0); Mean Corpuscular Volume 92 fL (80-100); Monocytes # (Auto) 0.5 Thou/mm3 (0.0-0.8); Monocytes % (Auto) 7 % (0-12); Neutrophils # (Auto) 4.1 Thou/mm3 (1.8-7.7); Neutrophils % (Auto) 60 % (37-80); Nucleated Red Blood Cell % 0 /100 WBC (0); Platelet Count 141 Thou/mm3 (140-440); RDW Standard Deviation 50.1 fL (35.1-43.9); Red Blood Count 4.14 Miln/mm3 (4.50-5.90); White Blood Count 6.9 Thou/mm3 (3.8-10.6)
[2024-11-08 06:29] LABS: Ferritin 31 ng/mL (10.5-307.3); Iron 91 mcg/dL (65-175); Percent Iron Saturation 29 % (20-55); Total Iron Binding Capacity 310 mcg/dL (250-425); Unsaturated Iron Binding 219 (225-295)
[2024-11-08 06:38] LABS: Alanine Aminotransferase 18 U/L (10-49); Albumin, Serum 3.9 gm/dL (3.4-4.8); Albumin/Globulin Ratio 1.8 (1.2-2.2); Alkaline Phosphatase 80 U/L (46-116); Anion Gap 4 (7-16); Aspartate Amino Transferase 13 U/L (0-34); BUN/Creatinine Ratio 21 Ratio (12-20); Bilirubin,Total 0.5 mg/dL (0.3-1.2); Blood Urea Nitrogen 36 mg/dL (9-23); Calcium 9.8 mg/dL (8.3-10.6); Calcium (Corrected) 9.9 mg/dL (8.5-10.1); Carbon Dioxide 28.7 mMol/L (20.0-31.0); Chloride 102 mMol/L (98-107); Creatinine (Component) 1.7 mg/dL (0.6-1.3); Estimated Creatinine Clearance 75.4 mL/min (>60); Globulin 2.2 gm/dL (2.3-3.5); Glucose 269 mg/dL (74-106); Magnesium 1.9 mg/dL (1.6-2.6); Osmolality,Calculated 287 (275-295); Phosphorous 2.8 mg/dL (2.4-5.1); Potassium 4.7 mMol/L (3.4-5.1); Sodium 135 mMol/L (136-145); Total Protein 6.1 gm/dL (5.7-8.2); eGFR 40 See Note
[2024-11-08 07:00] LABS: Hepatitis A Antibody IgM Non Reactive (Non React); Hepatitis B Core Antibody IgM Non Reactive (Non React); Hepatitis B Surface Antigen Non Reactive (Non React); Hepatitis C Antibody Non Reactive (Non React)
[2024-11-08] MEDS: INSULIN LISPRO (AdmeLOG) 1 UNIT/0.01 ML UNIT 5 UNIT SC (08:10)
[2024-11-08] MEDS: INSULIN LISPRO (AdmeLOG) 1 UNIT/0.01 ML UNIT SC ×3 (08:11→17:43)
[2024-11-08] MEDS: VIT B12/Vit C/FA (Nephrovite) TABLET 1 TAB PO (08:44)
[2024-11-08] MEDS: allopurinoL 100 MG TABLET PO (08:44)
[2024-11-08] MEDS: PRAMIPEXOLE 0.25 MG TABLET 0.5 MG PO (08:44)
[2024-11-08] MEDS: METOPROLOL TARTRATE 25 MG TABLET 50 MG PO ×2 (08:45→20:47)
[2024-11-08] MEDS: DOCUSATE SOD 100 MG CAPSULE 200 MG PO ×2 (08:46→20:46)
[2024-11-08] MEDS: BUMETANIDE 0.5 MG TABLET 2 MG PO (08:46)
[2024-11-08] MEDS: ASPIRIN EC 81 MG TABEC PO (08:47)
[2024-11-08] MEDS: SENNA TABLET 1 TAB PO ×2 (08:47→20:46)
[2024-11-08] MEDS: VALSARTAN 40 MG TABLET PO (08:47)
[2024-11-08] MEDS: POLYETHYLENE GLYCOL 17 GM PACKET PO (08:47)
[2024-11-08] MEDS: DOXYCYCLINE INJ 100 MG in SODIUM CHLORIDE 0.9% (POP) 100 ML IV (08:47)
[2024-11-08] MEDS: COLLAGENASE OINT 30 GM TUBE TOP (09:33)
--- NOTE | 2024-11-08 09:41 | ESPR_ITS ---
Documentation for date of: 11/08/24 Subjective Subjective Interval history: Mr. 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 Santana, Chronic leg ulcers( [facility] [place]) currently in a [place] in [place] who presented to the ED with bilateral lower extremity swelling and pain. Patient has a history of uncontrolled diabetes mellitus and CKD, creatinine seems to be at baseline. The patient does have some speech deficit following stroke, but is able to communicate and respond to simple questions. In the emergency room, Patient Was given IV ceftriaxone and insulin and [address] lower extremity showed cellulitis pattern both lower extremities, negative for osteomyelitis, heavy arterial calcification noted, venous Doppler negative for DVT., EKG showed sinus rhythm with first-degree AV block and ventricular bigeminy on telemetry, prior echocardiogram in 2021 showed EF 50%, patient was admitted to medical floor for management of cellulitis and bilateral lower extremity edema. Ultrasound abdomen was ordered. Nephrology was consulted for management of acute kidney injury and edema. 11/08/2024 the patient is elevated at bedside, reported no acute discomfort. Noted improvement in patient's lower extremity edema. Patient's renal function remains stable. Urine output not documented. sodium 135, K 4.7, CL 102, bicarb 28.7, BUN 36 creatinine 1.7 Exam Vital Signs Temp Pulse Resp BP Pulse Ox O2 Del Method 97.1 F 73 21 H 178/101 H 92 L Room Air 11/08/24 08:00 11/08/24 08:47 11/08/24 08:00 11/08/24 08:47 11/08/24 08:00 11/08/24 08:00 Narrative Exam General: A/O x3, no acute distress. Heavy set man Eyes: Legally blind, anicteric Ears: No ear pain, no ear discharge, Hearing grossly intact. Nose: No nasal discharge. Mouth/Throat: Dry mucous membranes, no redness, no lesions. Neck: Neck supple, non-tender, no cervical lymphadenopathy. Lungs: Clear JAGDEEP to auscultation and percussion, No accessory muscle use. Cardio: Normal S1/S2, regular rhythm, no murmurs, no JVD or carotid bruits. Abdomen: Soft, non-tender, no palpable masses, peristalsis present, no guarding or rebound. Extremities: Symmetrical, no significant deformities, 3+ peripheral edema and blanching erythema with an ulcer in medial L LE without any discharge, non- tender, peripheral pulses presents. Skin: Stasis dermatitis in legs Neuro: Aphasia noted, moving all extremities, but JAGDEEP LE weak. able to answe all question appropriately and follow commands. Objective Labs 11/08/24 05:05 11/08/24 05:05 Labs: Laboratory Results - last 24 hr 11/07/24 11/08/24 12:07 05:05 WBC 6.9 RBC 4.14 L Hgb 13.3 L Hct 38.0 L MCV 92 MCH 32.1 MCHC 35.0 RDW Std Deviation 50.1 H Plt Count 141 Neut % (Auto) 60 Lymph % (Auto) 27 [place] % (Auto) 7 Eos % (Auto) 4 Baso % (Auto) 1 Neut # (Auto) 4.1 Lymph # (Auto) 1.9 [place] # (Auto) 0.5 Eos # (Auto) 0.3 Baso # (Auto) 0.1 Immature Gran # (Auto) 0.07 H Absolute Nucleated RBC 0.00 Immature Gran % 1 H Nucleated RBC % 0 Sodium 138 135 L Potassium 4.5 D 4.7 Chloride 103 102 Carbon Dioxide 30.0 28.7 Anion Gap 5 L 4 L BUN 37 H 36 H Creatinine 1.7 H 1.7 H Estim Creat Clear Calc 47.8 L 75.4 eGFR 40 L 40 L BUN/Creatinine Ratio 22 H 21 H Glucose 221 H D 269 H Calculated Osmolality 291 287 Calcium 9.3 9.8 Corrected Calcium 9.5 9.9 Phosphorus 2.8 2.8 Magnesium 1.9 Iron 91 TIBC 310 Iron Saturation 29 Unsat Iron Binding 219 L Ferritin 31 Total Bilirubin 0.5 AST 13 ALT 18 Alkaline Phosphatase 80 Total Protein 6.1 Albumin 3.8 3.9 Globulin 2.2 L Albumin/Globulin Ratio 1.8 Hepatitis A IgM Ab Non Reactive Hep Bs Antigen Non Reactive Hep B Core IgM Ab Non Reactive Hepatitis C Antibody Non Reactive ABG Interpretation ABG results: 11/06/24 18:20 ABG pH 7.36 ABG pCO2 47 ABG pO2 76 L ABG HCO3 26 ABG O2 Saturation 96 ABG Base Excess 1 Quality Measures Quality Measures none Advance care planning discussed with:: patient Assessment & Plan Assessment Current Active Medications: Generic Name Dose Route Start Last Admin Trade Name Freq PRN Reason Stop Dose Admin Hydrocodone Bitart/Acetaminophen 1 tab 11/06/24 20:00 Hydrocodone/Apap 5/325 Tablet PO 11/11/24 19:59 Q4HR PRN PAIN SCALE 4-10(Mod-Sev Allopurinol 100 mg 11/08/24 09:00 11/08/24 08:44 Allopurinol 100 Mg Tablet PO 12/08/24 08:59 100 mg QDAY COLTEN Administration Artificial Tears 1 drop 11/07/24 08:03 Artificial Tears 225 Drop/15 Ml Btl BOTH EYES 12/07/24 08:02 BID PRN Dry Eyes Aspirin 81 mg 11/07/24 09:00 11/08/24 08:47 Aspirin Ec 81 Mg Tabec PO 12/07/24 08:59 81 mg QDAY COLTEN Administration Baclofen 10 mg 11/07/24 08:55 Baclofen 10 Mg Tablet PO 12/07/24 08:54 TID PRN Muscle Spasm Bumetanide 2 mg 11/07/24 09:00 11/08/24 08:46 Bumetanide 0.5 Mg Tablet PO 12/07/24 08:59 2 mg QDAY COLTEN Administration Collagenase 0 gm 11/07/24 15:15 11/08/24 09:33 Collagenase Oint 30 Gm Tube TOP 12/07/24 15:14 30 gm QDAY COLTEN Administration Dextrose 25 ml 11/06/24 20:00 Dextrose 50%-Water Inj 50 Ml Syringe IV 12/06/24 19:59 Q15MIN PRN BG 50-70 responsive npo pt Dextrose 50 ml 11/06/24 20:00 Dextrose 50%-Water Inj 50 Ml Syringe IV 12/06/24 19:59 Q15MIN PRN BG <50 OR BG <70 & pt unresponsive Docusate Sodium 200 mg 11/08/24 09:00 11/08/24 08:46 Docusate Sod 100 Mg Capsule PO 12/07/24 08:59 200 mg BID COLTEN Administration Protocol Gabapentin 300 mg 11/07/24 14:00 11/08/24 05:20 Gabapentin 300 Mg Capsule PO 12/07/24 13:59 300 mg TID COLTEN Administration Glucagon 1 mg 11/06/24 20:00 Glucagon Inj 1 Mg Vial IM Q15MIN PRN BG <70, and no IV access Doxycycline Hyclate 100 mg/ 100 mls @ 100 mls/hr 11/06/24 21:00 11/08/24 08:47 Sodium Chloride IV 11/13/24 20:59 100 mls/hr BID COLTEN Administration Piperacillin/Tazobactam/Dextrose 3.375 gm in 50 mls @ 12.5 mls/hr 11/07/24 14:00 11/08/24 05:22 Zosyn IV 11/13/24 21:59 12.5 mls/hr Q8HR COLTEN Administration Insulin Glargine 18 unit 11/07/24 21:00 11/07/24 21:26 Insulin Glargine (Lantus) 5 Unit/0.05 Ml (Per 5 Units) SC 12/07/24 20:59 18 unit HS COLTEN Administration Insulin Human Lispro 5 unit 11/07/24 11:30 11/08/24 08:10 Insulin Lispro (Admelog) 1 Unit/0.01 Ml Unit SC 12/07/24 11:29 5 unit AC COLTEN Administration Insulin Human Lispro 0 unit 11/07/24 14:00 11/08/24 08:11 Insulin Lispro (Admelog) 1 Unit/0.01 Ml Unit SC 12/07/24 13:59 4 unit AC COLTEN Administration Protocol Metoprolol Tartrate 50 mg 11/07/24 09:00 11/08/24 08:45 Metoprolol Tartrate 25 Mg Tablet PO 12/07/24 08:59 50 mg BID COLTEN Administration Ondansetron HCl 4 mg 11/06/24 20:00 Ondansetron Inj 2 Mg/Ml Inj 2 Ml IVP 12/06/24 19:59 Q6H PRN NAUSEA OR VOMITING Protocol Polyethylene Glycol 17 gm 11/07/24 09:00 11/08/24 08:47 Polyethylene Glycol 17 Gm Packet PO 12/07/24 08:59 17 gm QDAY COLTEN Administration Pramipexole Dihydrochloride 0.5 mg 11/07/24 09:00 11/08/24 08:44 Pramipexole 0.25 Mg Tablet PO 12/07/24 08:59 0.5 mg QDAY COLTEN Administration Rivaroxaban 10 mg/ Rivaroxaban 15 mg 11/07/24 17:30 11/07/24 17:30 5 mg PO 12/07/24 17:29 15 mg WSUPPER COLTEN Administration Sennosides 1 tab 11/08/24 09:00 11/08/24 08:47 Senna Tablet PO 12/07/24 20:59 1 tab BID COLTEN Administration Tamsulosin HCl 0.4 mg 11/07/24 21:00 11/07/24 20:10 Tamsulosin Hcl 0.4 Mg Capsule PO 12/07/24 20:59 0.4 mg HS COLTEN Administration Valsartan 40 mg 11/07/24 09:00 11/08/24 08:47 Valsartan 40 Mg Tablet PO 12/07/24 08:59 40 mg QDAY COLTEN Administration Vitamin B Complex/Vit C/Folic Acid 1 tab 11/07/24 09:00 11/08/24 08:44 Vit B12/Vit C/Fa (Nephrovite) Tablet PO 12/07/24 08:59 1 tab QDAY COLTEN Administration Plan (1) CKD (chronic kidney disease): Status: Acute Assessment and plan: Patient has history of 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 Noted significant edema in the lower extremities-most likely dependent edema. Rule out MALDONADO and liver cirrhosis. ? Follow-up ultrasound abdomen - ? Avoid nephrotoxic drugs, pharmacy to renally dose antibiotics ? Continue home medications valsartan 40 mg and Bumex 2 mg daily, Vicki-Tanesha. ? Hold spironolactone due to hyperkalemia. (2) Hyperkalemia: Status: Acute Assessment and plan: Potassium 5.4, mild hypokalemia, no EKG changes consistent with hyperkalemia, but did not note first-degree AV block and bigeminy pattern. ? Patient takes spirolactone at home, will hold spironolactone for now. Can continue valsartan, continue monitoring electrolytes and daily labs. (3) Cellulitis: Status: Acute Assessment and plan: Noticed to have 2 weeks of bilateral lower extremity swelling, reportedly had blisters during an outpatient visit, now improvement in swelling is noted but still has erythematous rash and over the medial aspect of left lower extremity from venous insufficiency. Also diabetes mellitus at risk of worsening infection, patient will be started on Zosyn and doxycycline for management of cellulitis. ?Management per primary team (4) UTI (urinary tract infection): Status: Acute Assessment and plan: Urinalysis shows UTI, currently on Zosyn and doxycycline, adequate coverage for UTI, follow urine cultures ? Management per primary team (5) Diabetes: Status: Acute Assessment and plan: Patient has longstanding history of diabetes, likely uncontrolled A1c 9%, takes insulin Lantus 13 units nightly and sliding scale insulin regular premeals. ? Management per primary team. Attending Provider Attestation/Addendum Patient seen and examined with resident physician Dr. Chatman. Note reviewed, agree with findings and recommendations with the few changes made. Well-known to me from my CKD clinic for more than 15 years. Agree with diuretics. His edema is markedly improved compared to when I saw him 2 weeks ago. Continue with antibiotics and leg elevation. Spoke to wound care for a salve for superficial stasis dermatitis. Creatinine stable at 1.7. Noted one of the blood cultures positive for gram- positive cocci. Clinically seems to be stable-plan for discharge tomorrow on p.o. antibiotics. Complaining of neuropathic pain-on gabapentin.
--- NOTE | 2024-11-08 13:19 | ESPR_ITS ---
Documentation for date of: 11/08/24 Subjective Subjective Interval history: Patient seen and examined at bedside. Patient's preliminary blood culture has GPC, started on vancomycin, stop doxycycline. Started on hydralazine 25 mg 3 times daily for better blood pressure control. Adjusted insulin regimen, diet changed to carb consistent. Will continue IV antibiotics, follow blood cultures. Patient's brother Melvin was called and updated on patient's condition. Exam Vital Signs Temp Pulse Resp BP Pulse Ox O2 Del Method 97.6 F 82 19 153/75 H 95 Room Air 11/08/24 11:45 11/08/24 11:45 11/08/24 11:45 11/08/24 11:45 11/08/24 11:45 11/08/24 11:45 Narrative Exam General: A/O x3, no acute distress. Heavy set man Eyes: Legally blind, anicteric Ears: No ear pain, no ear discharge, Hearing grossly intact. Nose: No nasal discharge. Mouth/Throat: Dry mucous membranes, no redness, no lesions. Neck: Neck supple, non-tender, no cervical lymphadenopathy. Lungs: Clear JAGDEEP to auscultation and percussion, No accessory muscle use. Cardio: Normal S1/S2, regular rhythm, no murmurs, no JVD or carotid bruits. Abdomen: Soft, non-tender, no palpable masses, peristalsis present, no guarding or rebound. Extremities: Symmetrical, no significant deformities, 3+ peripheral edema and blanching erythema with an ulcer in medial L LE without any discharge, non- tender, peripheral pulses presents. Skin: Stasis dermatitis in legs Neuro: Aphasia noted, moving all extremities, but JAGDEEP LE weak. able to answe all question appropriately and follow commands. Objective Labs 11/08/24 05:05 11/08/24 05:05 Labs: Laboratory Results - last 24 hr 11/08/24 05:05 WBC 6.9 RBC 4.14 L Hgb 13.3 L Hct 38.0 L MCV 92 MCH 32.1 MCHC 35.0 RDW Std Deviation 50.1 H Plt Count 141 Neut % (Auto) 60 Lymph % (Auto) 27 [place] % (Auto) 7 Eos % (Auto) 4 Baso % (Auto) 1 Neut # (Auto) 4.1 Lymph # (Auto) 1.9 [place] # (Auto) 0.5 Eos # (Auto) 0.3 Baso # (Auto) 0.1 Immature Gran # (Auto) 0.07 H Absolute Nucleated RBC 0.00 Immature Gran % 1 H Nucleated RBC % 0 Sodium 135 L Potassium 4.7 Chloride 102 Carbon Dioxide 28.7 Anion Gap 4 L BUN 36 H Creatinine 1.7 H Estim Creat Clear Calc 75.4 eGFR 40 L BUN/Creatinine Ratio 21 H Glucose 269 H Calculated Osmolality 287 Calcium 9.8 Corrected Calcium 9.9 Phosphorus 2.8 Magnesium 1.9 Iron 91 TIBC 310 Iron Saturation 29 Unsat Iron Binding 219 L Ferritin 31 Total Bilirubin 0.5 AST 13 ALT 18 Alkaline Phosphatase 80 Total Protein 6.1 Albumin 3.9 Globulin 2.2 L Albumin/Globulin Ratio 1.8 Hepatitis A IgM Ab Non Reactive Hep Bs Antigen Non Reactive Hep B Core IgM Ab Non Reactive Hepatitis C Antibody Non Reactive ABG Interpretation ABG results: 11/06/24 18:20 ABG pH 7.36 ABG pCO2 47 ABG pO2 76 L ABG HCO3 26 ABG O2 Saturation 96 ABG Base Excess 1 Quality Measures Quality Measures none Advance care planning discussed with:: patient Assessment & Plan Assessment Current Active Medications: Generic Name Dose Route Start Last Admin Trade Name Freq PRN Reason Stop Dose Admin Hydrocodone Bitart/Acetaminophen 1 tab 11/06/24 20:00 Hydrocodone/Apap 5/325 Tablet PO 11/11/24 19:59 Q4HR PRN PAIN SCALE 4-10(Mod-Sev Allopurinol 100 mg 11/08/24 09:00 11/08/24 08:44 Allopurinol 100 Mg Tablet PO 12/08/24 08:59 100 mg QDAY COLTEN Administration Artificial Tears 1 drop 11/07/24 08:03 Artificial Tears 225 Drop/15 Ml Btl BOTH EYES 12/07/24 08:02 BID PRN Dry Eyes Aspirin 81 mg 11/07/24 09:00 11/08/24 08:47 Aspirin Ec 81 Mg Tabec PO 12/07/24 08:59 81 mg QDAY COLTEN Administration Baclofen 10 mg 11/07/24 08:55 Baclofen 10 Mg Tablet PO 12/07/24 08:54 TID PRN Muscle Spasm Bumetanide 2 mg 11/07/24 09:00 11/08/24 08:46 Bumetanide 0.5 Mg Tablet PO 12/07/24 08:59 2 mg QDAY COLTEN Administration Collagenase 0 gm 11/07/24 15:15 11/08/24 09:33 Collagenase Oint 30 Gm Tube TOP 12/07/24 15:14 30 gm QDAY COLTEN Administration Dextrose 25 ml 11/06/24 20:00 Dextrose 50%-Water Inj 50 Ml Syringe IV 12/06/24 19:59 Q15MIN PRN BG 50-70 responsive npo pt Dextrose 50 ml 11/06/24 20:00 Dextrose 50%-Water Inj 50 Ml Syringe IV 12/06/24 19:59 Q15MIN PRN BG <50 OR BG <70 & pt unresponsive Docusate Sodium 200 mg 11/08/24 09:00 11/08/24 08:46 Docusate Sod 100 Mg Capsule PO 12/07/24 08:59 200 mg BID COLTEN Administration Protocol Gabapentin 300 mg 11/07/24 14:00 11/08/24 05:20 Gabapentin 300 Mg Capsule PO 12/07/24 13:59 300 mg TID COLTEN Administration Glucagon 1 mg 11/06/24 20:00 Glucagon Inj 1 Mg Vial IM Q15MIN PRN BG <70, and no IV access Hydralazine HCl 25 mg 11/08/24 14:00 Hydralazine Hcl 25 Mg Tablet PO 12/08/24 13:59 TID COLTEN Piperacillin/Tazobactam/Dextrose 3.375 gm in 50 mls @ 12.5 mls/hr 11/07/24 14:00 11/08/24 05:22 Zosyn IV 11/13/24 21:59 12.5 mls/hr Q8HR COLTEN Administration Vancomycin HCl 250 mls @ 120 mls/hr 11/08/24 14:00 Vancomycin/Water 1250 Mg Ivpb IV 11/08/24 16:04 X1 ONE Insulin Glargine 30 unit 11/08/24 21:00 Insulin Glargine (Lantus) 5 Unit/0.05 Ml (Per 5 Units) SC 12/08/24 20:59 HS [facility] Insulin Human Lispro 0 unit 11/07/24 14:00 11/08/24 12:31 Insulin Lispro (Admelog) 1 Unit/0.01 Ml Unit SC 12/07/24 13:59 5 unit AC COLTEN Administration Protocol Insulin Human Lispro 7 unit 11/08/24 17:00 Insulin Lispro (Admelog) 1 Unit/0.01 Ml Unit SC 12/08/24 16:59 AC COLTEN Metoprolol Tartrate 50 mg 11/07/24 09:00 11/08/24 08:45 Metoprolol Tartrate 25 Mg Tablet PO 12/07/24 08:59 50 mg BID COLTEN Administration Ondansetron HCl 4 mg 11/06/24 20:00 Ondansetron Inj 2 Mg/Ml Inj 2 Ml IVP 12/06/24 19:59 Q6H PRN NAUSEA OR VOMITING Protocol Pharmacy Consult 1 each 11/08/24 12:00 Vancomycin Pharmacy To Dose 1 Each Each IV 12/08/24 11:59 QDAY PRN CONSULT Polyethylene Glycol 17 gm 11/07/24 09:00 11/08/24 08:47 Polyethylene Glycol 17 Gm Packet PO 12/07/24 08:59 17 gm QDAY COLTEN Administration Pramipexole Dihydrochloride 0.5 mg 11/07/24 09:00 11/08/24 08:44 Pramipexole 0.25 Mg Tablet PO 12/07/24 08:59 0.5 mg QDAY COLTEN Administration Rivaroxaban 10 mg/ Rivaroxaban 15 mg 11/07/24 17:30 11/07/24 17:30 5 mg PO 12/07/24 17:29 15 mg WSUPPER COLTEN Administration Sennosides 1 tab 11/08/24 09:00 11/08/24 08:47 Senna Tablet PO 12/07/24 20:59 1 tab BID COLTEN Administration Tamsulosin HCl 0.4 mg 11/07/24 21:00 11/07/24 20:10 Tamsulosin Hcl 0.4 Mg Capsule PO 12/07/24 20:59 0.4 mg HS COLTEN Administration Valsartan 40 mg 11/07/24 09:00 11/08/24 08:47 Valsartan 40 Mg Tablet PO 12/07/24 08:59 40 mg QDAY COLTEN Administration Vitamin B Complex/Vit C/Folic Acid 1 tab 11/07/24 09:00 11/08/24 08:44 Vit B12/Vit C/Fa (Nephrovite) Tablet PO 12/07/24 08:59 1 tab QDAY COLTEN Administration Plan 78-year-old male wheelchair-bound and legally blind male with past medical history of 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 #Bilateral lower extremity erythema #Bilateral lower extremity cellulitis #Chronic leg edema, PAD by history Patient noticed around 1 week of erythema in bilateral lower extremities Patient's last echo on 2021 was EF of 55% Patient has chronic lower extremity swelling, but on assessment had a blanching erythematous rash with a wound on the medial aspect of the left lower extremity likely from venous insufficiency. Patient hide risk for infection being bedbound and history of DM2 Bilateral lower extremity ultrasound negative for DVT. Lower extremity CT shows cellulitis pattern in both lower extremities. ESR 39 CRP, BNP within normal limits Doxycycline 11/06-11/08 Plan: -Continue Zosyn (11/06-and vancomycin (11/08- -resume home dose Bumex 2 mg p.o. -follow blood cultures -Referral to wound care -Strict MAXINE's and daily weights #CHARLENE on CKD Patient has a history of CKD and baseline creatinine is around 1.8 and on admission was 2.1 with improved with some fluids to 2. Patient is currently not on hemodialysis Abdominal ultrasound: Cirrhosis with moderate hepatomegaly, Normal gallbladder, Bilateral renal cortical thinning, Moderate bilateral renal parenchymal scar formation Plan: -Started on home dose Bumex 2 mg p.o. -Avoid nephrotoxic agents -Renally dose medication -Nephrology consulted, appreciate commendations #Hyperkalemia, resolved #Frequent PVCs On assessment patient was having frequent PVCs on desk monitor Patient's last echo showed an EF of 55% with mitral and tricuspid valve regurgitation Patient's potassium was 4.9 EKG showed first-degree AV block Plan: - Follow potassium level in a.m. - Will keep potassium more than 4 and magnesium more than 2 - Telemetry monitoring - Hold home dose spironolactone #Poorly controlled type 2 diabetes mellitus #Hyperlipidemia 11/07- hemoglobin A1c 9.2 On admission patient's blood sugar was 523 Got 12 units of regular insulin subcu in the ED Triglyceride 200, cholesterol 139, LDL 74, HDL 25 Plan: -Insulin glargine to 30 units at bedtime -Insulin 7 units AC -Sliding scale insulin -Hypoglycemia protocol #Cirrhosis #Thrombocytopenia #Suspicion of Metabolic dysfunction-associated steatotic liver disease Abdominal ultrasound shows cirrhosis with noted hepatomegaly, patient has no history of cirrhosis.-High suspicion of MASLD secondary to uncontrolled diabetes and hyperlipidemia. Abdominal ultrasound: Cirrhosis with moderate hepatomegaly, Normal gallbladder, Bilateral renal cortical thinning, Moderate bilateral renal parenchymal scar formation Hepatitis panel unremarkable, iron panel shows normal iron levels. Plan: - Complete workup outpatient #Hypertension #Constipation #Benign prostate hypertrophy #Gout #Muscle spasms, chronic pain #Hx of CVA with residual aphasia #Hx of blindness - Resumed home dose aspirin, Xarelto, gabapentin, artificial tears, metoprolol tartrate, bowel regimen and valsartan - Adjusted allopurinol renally Disposition: Patient admitted to main campus [facility] center for LE erythema. Diet: Renal GI prophylaxis: not indicated DVT prophylaxis: Xarelto Code: Full Code Case discussed with Attending Dr. Sims. Melyssa Francis PGY1 Disclaimer: This note was dictated by speech recognition. Minor errors in goodwill representative may be present due to voice recognition software. Attending Provider Attestation/Addendum I have discussed and was present for the essential components of the history, physical examination, diagnosis, and treatment plan with the resident. I agree with the patient's care as documented by the resident and amended herein by me. Ramakrishna Sims DO. Although this document has been carefully reviewed, there may still be some phonetic and other typographical errors. These errors are purely grammatical due to imperfections in the software program and should not be construed in any way to compromise the substance of the patient's medical care during this visit.
[2024-11-08] MEDS: hydrALAZINE HCL 25 MG TABLET PO ×2 (13:40→21:49)
[2024-11-08] MEDS: VANCOMYCIN/WATER 1250 MG IVPB 250 ML 120 MG IV (13:40)
--- NOTE | 2024-11-08 16:08 | PC.SS ---
Rounding note: patient is pending IV antibiotics and cultures including controlled blood sugars. Plan is to d/c the patient tomorrow back to [facility] if stable for discharge.
[2024-11-08] MEDS: INSULIN LISPRO (AdmeLOG) 1 UNIT/0.01 ML UNIT 7 UNIT SC (17:45)
[2024-11-08] MEDS: RIVAROXABAN 10 MG, RIVAROXABAN 5 MG 15 MG PO (17:48)
[2024-11-08] MEDS: INSULIN GLARGINE (Lantus) 5 UNIT/0.05 ML (PER 5 UNITS) 30 UNIT SC (20:44)
[2024-11-08] MEDS: TAMSULOSIN HCL 0.4 MG CAPSULE PO (20:46)
[2024-11-09] VITALS (12 sets, daily range): BP systolic 125–169; BP diastolic 64–97; PULSE 61–73; RESP 18–97; TEMP 35.9–36.2; O2SAT 93–95
[2024-11-09] MEDS: hydrALAZINE HCL 25 MG TABLET PO (05:30)
[2024-11-09] MEDS: PIPER/TAZO 3.375 GM PREMIX 3.375 GM/50 ML BAG IV ×2 (05:31→14:56)
[2024-11-09] MEDS: GABAPENTIN 300 MG CAPSULE PO ×2 (05:31→14:56)
[2024-11-09 05:54] LABS: Basophils # (Auto) 0.1 Thou/mm3 (0.0-0.2); Basophils % (Auto) 1 % (0-2.5); Eosinophils # (Auto) 0.3 Thou/mm3 (0.0-0.5); Eosinophils % (Auto) 4 % (0-10); Hematocrit 37.5 % (41.0-53.0); Immature Granulocytes % (Auto) 1 % (0-0); Immature Granulocytes Auto 0.04 Thou/mm3 (0.00-0.00); Lymphocytes % (Auto) 27 % (10-50); Mean Corpuscular HGB Conc 34.7 g/dl (31.0-37.0); Mean Corpuscular Hemoglobin 31.9 pg (25.0-35.0); Mean Corpuscular Volume 92 fL (80-100); Monocytes # (Auto) 0.5 Thou/mm3 (0.0-0.8); Monocytes % (Auto) 6 % (0-12); Neutrophils # (Auto) 4.6 Thou/mm3 (1.8-7.7); Neutrophils % (Auto) 62 % (37-80); Nucleated Red Blood Cell % 0 /100 WBC (0); Platelet Count 134 Thou/mm3 (140-440); RDW Standard Deviation 49.1 fL (35.1-43.9); Red Blood Count 4.07 Miln/mm3 (4.50-5.90); White Blood Count 7.4 Thou/mm3 (3.8-10.6)
[2024-11-09 06:36] LABS: Alanine Aminotransferase 15 U/L (10-49); Albumin, Serum 3.8 gm/dL (3.4-4.8); Albumin/Globulin Ratio 1.7 (1.2-2.2); Alkaline Phosphatase 74 U/L (46-116); Anion Gap 8 (7-16); Aspartate Amino Transferase 12 U/L (0-34); BUN/Creatinine Ratio 19 Ratio (12-20); Bilirubin,Total 0.5 mg/dL (0.3-1.2); Blood Urea Nitrogen 34 mg/dL (9-23); Calcium 9.4 mg/dL (8.3-10.6); Calcium (Corrected) 9.6 mg/dL (8.5-10.1); Carbon Dioxide 28.6 mMol/L (20.0-31.0); Chloride 100 mMol/L (98-107); Creatinine (Component) 1.8 mg/dL (0.6-1.3); Estimated Creatinine Clearance 45.1 mL/min (>60); Globulin 2.2 gm/dL (2.3-3.5); Glucose 255 mg/dL (74-106); Magnesium 1.7 mg/dL (1.6-2.6); Osmolality,Calculated 290 (275-295); Phosphorous 3.3 mg/dL (2.4-5.1); Potassium 4.6 mMol/L (3.4-5.1); Sodium 137 mMol/L (136-145); eGFR 38 See Note
[2024-11-09] MEDS: INSULIN LISPRO (AdmeLOG) 1 UNIT/0.01 ML UNIT 7 UNIT SC (08:14)
[2024-11-09] MEDS: INSULIN LISPRO (AdmeLOG) 1 UNIT/0.01 ML UNIT SC ×2 (08:14→12:30)
[2024-11-09] MEDS: DOCUSATE SOD 100 MG CAPSULE 200 MG PO (08:15)
[2024-11-09] MEDS: POLYETHYLENE GLYCOL 17 GM PACKET PO (08:15)
[2024-11-09] MEDS: METOPROLOL TARTRATE 25 MG TABLET 50 MG PO (08:16)
[2024-11-09] MEDS: SENNA TABLET 1 TAB PO (08:16)
[2024-11-09] MEDS: VIT B12/Vit C/FA (Nephrovite) TABLET 1 TAB PO (08:16)
[2024-11-09] MEDS: allopurinoL 100 MG TABLET PO (08:16)
[2024-11-09] MEDS: ASPIRIN EC 81 MG TABEC PO (08:16)
[2024-11-09] MEDS: PRAMIPEXOLE 0.25 MG TABLET 0.5 MG PO (08:16)
[2024-11-09] MEDS: BUMETANIDE 0.5 MG TABLET 2 MG PO (08:17)
[2024-11-09] MEDS: VALSARTAN 40 MG TABLET PO (08:17)
[2024-11-09] MEDS: COLLAGENASE OINT 30 GM TUBE TOP (08:26)
--- NOTE | 2024-11-09 08:43 | PD.RESPRO ---
Documentation for date of: 11/09/24 Subjective Subjective Interval history: Mr. 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 Santana, Chronic leg ulcers( seen [facility] [place] who presented to the ED with bilateral lower extremity swelling and pain. Patient has a history of uncontrolled diabetes mellitus and CKD, creatinine seems to be at baseline. The patient does have some speech deficit following stroke, but is able to communicate and respond to simple questions. In the emergency room, Patient Was given IV ceftriaxone and insulin and [address] lower extremity showed cellulitis pattern both lower extremities, negative for osteomyelitis, heavy arterial calcification noted, venous Doppler negative for DVT., EKG showed sinus rhythm with first-degree AV block and ventricular bigeminy on telemetry, prior echocardiogram in 2021 showed EF 50%, patient was admitted to medical floor for management of cellulitis and bilateral lower extremity edema. Ultrasound abdomen was ordered. Nephrology was consulted for management of acute kidney injury and edema. 11/08/2024 the patient is elevated at bedside, reported no acute discomfort. Noted improvement in patient's lower extremity edema. Patient's renal function remains stable. Urine output not documented. sodium 135, K 4.7, CL 102, bicarb 28.7, BUN 36 creatinine 1.7 11/09/2024, patient is evaluated at the bedside, reported feeling better, currently sitting propped up eating breakfast with the help of MANAGER MATERIAL. slight elevation in creatinine 1.8 but overall renal function remains stable. Noted to have GPC's 1/2 bottle likely contaminant, patient stays afebrile, no leukocytosis. Patient can be discharged from nephrology standpoint. Recommend taking gabapentin for back pain and Augmentin on discharge. Sodium 137 potassium 4.7 bicarb 28 BUN 34 creatinine 1.8 Exam Vital Signs Temp Pulse Resp BP Pulse Ox O2 Del Method 97.0 F 62 18 169/97 H 94 L Room Air 11/09/24 03:45 11/09/24 08:17 11/09/24 03:45 11/09/24 08:17 11/09/24 03:45 11/09/24 03:45 Narrative Exam General: A/O x3, no acute distress. Heavy set man Eyes: Legally blind, anicteric Ears: No ear pain, no ear discharge, Hearing grossly intact. Nose: No nasal discharge. Mouth/Throat: Dry mucous membranes, no redness, no lesions. Neck: Neck supple, non-tender, no cervical lymphadenopathy. Lungs: Clear JAGDEEP to auscultation and percussion, No accessory muscle use. Cardio: Normal S1/S2, regular rhythm, no murmurs, no JVD or carotid bruits. Abdomen: Soft, non-tender, no palpable masses, peristalsis present, no guarding or rebound. Extremities: Symmetrical, no significant deformities, 3+ peripheral edema and blanching erythema with an ulcer in medial L LE without any discharge, non-tender, peripheral pulses presents. Skin: Stasis dermatitis in legs Neuro: Aphasia noted, moving all extremities, but JAGDEEP LE weak. able to answe all question appropriately and follow commands. Objective Labs 11/09/24 04:53 11/09/24 04:53 Labs: Laboratory Results - last 24 hr 11/09/24 04:53 WBC 7.4 RBC 4.07 L Hgb 13.0 L Hct 37.5 L MCV 92 MCH 31.9 MCHC 34.7 RDW Std Deviation 49.1 H Plt Count 134 L Neut % (Auto) 62 Lymph % (Auto) 27 [place] % (Auto) 6 Eos % (Auto) 4 Baso % (Auto) 1 Neut # (Auto) 4.6 Lymph # (Auto) 2.0 [place] # (Auto) 0.5 Eos # (Auto) 0.3 Baso # (Auto) 0.1 Immature Gran # (Auto) 0.04 H Absolute Nucleated RBC 0.00 Immature Gran % 1 H Nucleated RBC % 0 Sodium 137 Potassium 4.6 Chloride 100 Carbon Dioxide 28.6 Anion Gap 8 BUN 34 H Creatinine 1.8 H Estim Creat Clear Calc 45.1 L eGFR 38 L BUN/Creatinine Ratio 19 Glucose 255 H Calculated Osmolality 290 Calcium 9.4 Corrected Calcium 9.6 Phosphorus 3.3 Magnesium 1.7 Total Bilirubin 0.5 AST 12 ALT 15 Alkaline Phosphatase 74 Total Protein 6.0 Albumin 3.8 Globulin 2.2 L Albumin/Globulin Ratio 1.7 ABG Interpretation ABG results: 11/06/24 18:20 ABG pH 7.36 ABG pCO2 47 ABG pO2 76 L ABG HCO3 26 ABG O2 Saturation 96 ABG Base Excess 1 Quality Measures Quality Measures none Advance care planning discussed with:: patient Assessment & Plan Assessment Current Active Medications: Generic Name Dose Route Start Last Admin Trade Name Freq PRN Reason Stop Dose Admin Hydrocodone Bitart/Acetaminophen 1 tab 11/06/24 20:00 Hydrocodone/Apap 5/325 Tablet PO 11/11/24 19:59 Q4HR PRN PAIN SCALE 4-10(Mod-Sev Allopurinol 100 mg 11/08/24 09:00 11/09/24 08:16 Allopurinol 100 Mg Tablet PO 12/08/24 08:59 100 mg QDAY COLTEN Administration Artificial Tears 1 drop 11/07/24 08:03 Artificial Tears 225 Drop/15 Ml Btl BOTH EYES 12/07/24 08:02 BID PRN Dry Eyes Aspirin 81 mg 11/07/24 09:00 11/09/24 08:16 Aspirin Ec 81 Mg Tabec PO 12/07/24 08:59 81 mg QDAY COLTEN Administration Baclofen 10 mg 11/07/24 08:55 Baclofen 10 Mg Tablet PO 12/07/24 08:54 TID PRN Muscle Spasm Bumetanide 2 mg 11/07/24 09:00 11/09/24 08:17 Bumetanide 0.5 Mg Tablet PO 12/07/24 08:59 2 mg QDAY COLTEN Administration Collagenase 0 gm 11/07/24 15:15 11/09/24 08:26 Collagenase Oint 30 Gm Tube TOP 12/07/24 15:14 1 gm QDAY COLTEN Administration Dextrose 25 ml 11/06/24 20:00 Dextrose 50%-Water Inj 50 Ml Syringe IV 12/06/24 19:59 Q15MIN PRN BG 50-70 responsive npo pt Dextrose 50 ml 11/06/24 20:00 Dextrose 50%-Water Inj 50 Ml Syringe IV 12/06/24 19:59 Q15MIN PRN BG <50 OR BG <70 & pt unresponsive Docusate Sodium 200 mg 11/08/24 09:00 11/09/24 08:15 Docusate Sod 100 Mg Capsule PO 12/07/24 08:59 200 mg BID COLTEN Administration Protocol Gabapentin 300 mg 11/07/24 14:00 11/09/24 05:31 Gabapentin 300 Mg Capsule PO 12/07/24 13:59 300 mg TID COLTEN Administration Glucagon 1 mg 11/06/24 20:00 Glucagon Inj 1 Mg Vial IM Q15MIN PRN BG <70, and no IV access Hydralazine HCl 25 mg 11/08/24 14:00 11/09/24 05:30 Hydralazine Hcl 25 Mg Tablet PO 12/08/24 13:59 25 mg TID COLTEN Administration Piperacillin/Tazobactam/Dextrose 3.375 gm in 50 mls @ 12.5 mls/hr 11/07/24 14:00 11/09/24 05:31 Zosyn IV 11/13/24 21:59 12.5 mls/hr Q8HR COLTEN Administration Vancomycin/Sodium Chloride 750 mg in 150 mls @ 120 mls/hr 11/09/24 10:00 Vancomycin/Ns 750 Mg Ivpb IV 11/16/24 09:59 Q12H COLTEN Insulin Glargine 30 unit 11/08/24 21:00 11/08/24 20:44 Insulin Glargine (Lantus) 5 Unit/0.05 Ml (Per 5 Units) SC 12/08/24 20:59 30 unit HS COLTEN Administration Insulin Human Lispro 0 unit 11/07/24 14:00 11/09/24 08:14 Insulin Lispro (Admelog) 1 Unit/0.01 Ml Unit SC 12/07/24 13:59 4 unit AC COLTEN Administration Protocol Insulin Human Lispro 7 unit 11/08/24 17:00 11/09/24 08:14 Insulin Lispro (Admelog) 1 Unit/0.01 Ml Unit SC 12/08/24 16:59 7 unit AC COLTEN Administration Metoprolol Tartrate 50 mg 11/07/24 09:00 11/09/24 08:16 Metoprolol Tartrate 25 Mg Tablet PO 12/07/24 08:59 50 mg BID COLTEN Administration Ondansetron HCl 4 mg 11/06/24 20:00 Ondansetron Inj 2 Mg/Ml Inj 2 Ml IVP 12/06/24 19:59 Q6H PRN NAUSEA OR VOMITING Protocol Pharmacy Consult 1 each 11/08/24 12:00 Vancomycin Pharmacy To Dose 1 Each Each IV 12/08/24 11:59 QDAY PRN CONSULT Pharmacy Consult 1 each 11/08/24 15:44 Pharmacy Renal Dose Adjustment 1 Ea XX 12/08/24 15:43 PRN PRN CONSULT Polyethylene Glycol 17 gm 11/07/24 09:00 11/09/24 08:15 Polyethylene Glycol 17 Gm Packet PO 12/07/24 08:59 17 gm QDAY COLTEN Administration Pramipexole Dihydrochloride 0.5 mg 11/07/24 09:00 11/09/24 08:16 Pramipexole 0.25 Mg Tablet PO 12/07/24 08:59 0.5 mg QDAY COLTEN Administration Rivaroxaban 10 mg/ Rivaroxaban 15 mg 11/07/24 17:30 11/08/24 17:48 5 mg PO 12/07/24 17:29 15 mg WSUPPER COLTEN Administration Sennosides 1 tab 11/08/24 09:00 11/09/24 08:16 Senna Tablet PO 12/07/24 20:59 1 tab BID COLTEN Administration Tamsulosin HCl 0.4 mg 11/07/24 21:00 11/08/24 20:46 Tamsulosin Hcl 0.4 Mg Capsule PO 12/07/24 20:59 0.4 mg HS COLTEN Administration Valsartan 40 mg 11/07/24 09:00 11/09/24 08:17 Valsartan 40 Mg Tablet PO 12/07/24 08:59 40 mg QDAY COLTEN Administration Vitamin B Complex/Vit C/Folic Acid 1 tab 11/07/24 09:00 11/09/24 08:16 Vit B12/Vit C/Fa (Nephrovite) Tablet PO 12/07/24 08:59 1 tab QDAY COLTEN Administration Plan (1) CKD (chronic kidney disease): Status: Acute Assessment and plan: Patient has history of 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 Noted significant edema in the lower extremities-most likely dependent edema. Rule out MALDONADO and liver cirrhosis. ? Ultrasound abdomen showed cirrhosis and bilateral renal cortical thinning ? Avoid nephrotoxic drugs, pharmacy to renally dose antibiotics ? Continue home medications valsartan 40 mg and Bumex 2 mg daily, Vicki-Tanesha. ? Hold spironolactone due to hyperkalemia. ? Patient can be discharged from nephrology standpoint, kidney functions remain stable. (2) Hyperkalemia: Status: Acute Assessment and plan: Potassium 5.4, mild hypokalemia, no EKG changes consistent with hyperkalemia, but did not note first-degree AV block and bigeminy pattern. ? Patient takes spirolactone at home, will hold spironolactone for now. Can continue valsartan, continue monitoring electrolytes and daily labs. (3) Cellulitis: Status: Acute Assessment and plan: Noticed to have 2 weeks of bilateral lower extremity swelling, reportedly had blisters during an outpatient visit, now improvement in swelling is noted but still has erythematous rash and over the medial aspect of left lower extremity from venous insufficiency. Also diabetes mellitus at risk of worsening infection, patient will be started on Zosyn and doxycycline for management of cellulitis. ?Management per primary team (4) UTI (urinary tract infection): Status: Acute Assessment and plan: Urinalysis shows UTI, currently on Zosyn and doxycycline, adequate coverage for UTI, follow urine cultures ? Management per primary team (5) Diabetes: Status: Acute Assessment and plan: Patient has longstanding history of diabetes, likely uncontrolled A1c 9%, takes insulin Lantus 13 units nightly and sliding scale insulin regular premeals. ? Management per primary team. Plan of care discussed with Dr. Bowen, patient can be discharged from nephrology standpoint, Lurdes PGY2 Attending Provider Attestation/Addendum Patient seen and examined with resident physician Dr. Chatman. Note reviewed, agree with findings and recommendations with the few changes made. Well-known to me from my CKD clinic for more than 15 years. Agree with diuretics. His edema is markedly improved compared to when I saw him 2 weeks ago. Continue with antibiotics and leg elevation. Spoke to wound care for a salve for superficial stasis dermatitis. Creatinine stable at 1.8. Noted one of the blood cultures positive for gram-positive cocci. Clinically seems to be stable-plan for discharge on p.o. Augmentin. Plan of care discussed with primary team. Will see him in my office in 1 to 2 weeks Complaining of neuropathic pain-on gabapentin.
[2024-11-09] MEDS: VANCOMYCIN/NS 750 MG IVPB 750 MG/150 ML BAG 120 MG IV (10:37)
[2024-11-09] MEDS: INSULIN LISPRO (AdmeLOG) 1 UNIT/0.01 ML UNIT 8 UNIT SC (12:31)
--- NOTE | 2024-11-09 12:41 | PC.NURSE ---
I was just informed by MANUELA Garcia pt's d/c has been cancelled by Dr. Sims until pt's blood sugar is more controlled. POC spoke to MANUELA and requested pt's blood sugar more controlled. D/C cancelled for today.
[2024-11-09] MEDS: hydrALAZINE HCL 25 MG TABLET 50 MG PO (14:56)
--- NOTE | 2024-11-09 15:10 | PD.RESDS ---
Planned Discharge Date 11/09/24 DS: Providers Provider Date of admission: 11/06/24 20:00 Primary care physician: Physician No Primary/Family Admitting Provider: Rosita Cunha MD Attending Provider on Admission: Malik Sims DO Consults: 11/06/24 17:44 Consult to Nephrology Stat Comment: Consulting Provider: Ke Bowen 11/06/24 20:14 Referral Wound Care Routine Comment: Attending Provider on DC: Malik Sims DO Discharging Provider: Malik Sims DO Anticipated date of discharge: 11/09/24 DS: Diagnosis Problem List Completed Was Problem List Reviewed/Reconciled?: Yes Hospital Course Hospital Course Hospital course: Hospital course: Mr. 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 Patient had progressive 1 week of erythema in bilateral lower extremities, CT scan showed cellulitis pattern in both lower extremities, ESR was elevated and bilateral lower extremity ultrasound was negative for DVT. Patient was started on IV Zosyn and doxycycline, doxycycline was eventually switched to vancomycin, patient had underlying CHARLENE which improved with p.o. Bumex, nephrology was consulted. Patient did have an episode of hyperkalemia for which patient was treated and spironolactone was held. On physical exam there was suspicion of possible underlying liver cirrhosis, hepatitis panel and iron panel were unremarkable patient has underlying poorly controlled diabetes mellitus hence high suspicion of metabolic dysfunction associated steatotic liver disease. Patient's glucose regimen was optimized, further plan is to discharge patient back to assisted and follow-up with primary care physician and nephrology outpatient. Patient to complete antibiotic course with oral ciprofloxacin. Spironolactone discontinued, patient started on hydralazine, patient to follow-up with nephrology outpatient for blood pressure optimization. Patient will be discharged on Lantus 35 units and lispro 8 units 3 times daily. Facility to continue carb consistent low diet, repeat A1c in 3 months, close follow-up with primary care physician. Patient is stable for discharge and responded well to hospital treatment. Discharge Diagnosis: #Bilateral lower extremity edema and erythema #Bilateral lower extremity cellulitis #Chronic leg edema, PAD by history #CHARLENE on CKD stage III, improving #Hyperkalemia, resolved #Frequent PVCs #Poorly controlled type 2 diabetes mellitus, A1c 9.2 #Hypertension #Hyperlipidemia #Newly diagnosed cirrhosis #Thrombocytopenia #Suspicion of metabolic dysfunction associated steatotic liver disease #Constipation #Benign prostate hypertrophy #Gout #Muscle spasms, chronic pain #History of CVA with residual aphasia #History of blindness Case discussed with Attending Dr. Sims. Melyssa Francis PGY1 Disclaimer: This note was dictated by speech recognition. Minor errors in mandarin teacher may be present due to voice recognition software. Status at Discharge Overall status at discharge: patient is progressing back to baseline Time Spent with Patient Time attestation: Total time spent providing and/or coordinating discharge services: Time spent: Greater than 30 minutes Exam Vital Signs Temp Pulse Resp BP Pulse Ox O2 Del Method 97.1 F 67 18 145/70 H 95 Room Air 11/09/24 12:00 11/09/24 14:56 11/09/24 13:08 11/09/24 14:56 11/09/24 12:00 11/09/24 12:00 Narrative Exam General: A/O x3, no acute distress. Heavy set man Eyes: Legally blind, anicteric Ears: No ear pain, no ear discharge, Hearing grossly intact. Nose: No nasal discharge. Mouth/Throat: Dry mucous membranes, no redness, no lesions. Neck: Neck supple, non-tender, no cervical lymphadenopathy. Lungs: Clear JAGDEEP to auscultation and percussion, No accessory muscle use. Cardio: Normal S1/S2, regular rhythm, no murmurs, no JVD or carotid bruits. Abdomen: Soft, non-tender, no palpable masses, peristalsis present, no guarding or rebound. Extremities: Symmetrical, no significant deformities, 3+ peripheral edema and blanching erythema with an ulcer in medial L LE without any discharge, non-tender, peripheral pulses presents. Skin: Stasis dermatitis in legs Neuro: Aphasia noted, moving all extremities, but JAGDEEP LE weak. able to answe all question appropriately and follow commands. Discharge Plan Plan Patient Disposition: Xfer Skilled Nsg Fac (SNF) Patient condition on transfer: Stable Prescriptions/Referrals Prescriptions/Med Rec: New allopurinol 100 mg Tablet 100 mg PO QDAY Qty: 0 0RF Santyl 250 unit/gram Ointment 1 applic top QDAY Qty: 0 0RF insulin glargine [Lantus U-100 Insulin] 100 unit/mL Solution 35 unit SCi HS Qty: 0 0RF insulin lispro 100 unit/mL Solution 8 unit SCi AC Qty: 0 0RF clindamycin HCl 300 mg capsule 450 mg PO TID 4 Days Qty: 18 0RF hydralazine 50 mg tablet 50 mg PO TID Qty: 0 0RF Continued polyethylene glycol 3350 17 gram Powder In Packet 17 g PO QDAY acetaminophen 650 mg Tablet 650 mg PO Q6H PRN (Reason: Pain (Scale Score 1-3)) tramadol 50 mg Tablet 50 mg PO Q6H PRN (Reason: Pain (Scale Score 4-6)) pramipexole 0.5 mg Tablet 0.5 mg PO QDAY tamsulosin 0.4 mg Capsule 0.4 mg PO HS baclofen 10 mg Tablet 10 mg PO TID PRN (Reason: Muscle Spasm) bisacodyl [Dulcolax (bisacodyl)] 10 mg Suppository See Rx Instructions .ROUTE .COMPLEX PRN (Reason: Constipation) Rx Instructions: 10 mg rectally as needed Q72HR if no bm docusate sodium [Colace] 100 mg Capsule 200 mg PO BID gabapentin 300 mg Capsule 300 mg PO TID Vicki-Tanesha 0.8 mg Tablet 1 tab PO QDAY aspirin 81 mg Tablet 81 mg PO QDAY metoprolol tartrate 25 mg Tablet 50 mg PO BID Rx Instructions: holf if sbp <100 or dbp <60 senna 8.6 mg Capsule 8.6 mg PO BID diclofenac sodium 1 % Gel 2 g TOPICAL BID PRN (Reason: Pain) Rx Instructions: FOR RIGHT KNEE PAIN Xarelto 15 mg Tablet 15 mg PO QDAY Artificial Tears (cmc) 1 % Drops 1 drp OPHTHALMIC (EYE) BID PRN (Reason: Dry Eyes) calcium carbonate-vitamin D3 600 mg-10 mcg (400 unit) Tablet 1 tab PO BID lactulose 20 gram/30 mL Solution 30 ml PO QDAY Rx Instructions: hold for loose stools nitroglycerin 0.4 mg Tablet, Sublingual 0.4 mg BUCCAL [id number] PRN (Reason: Chest Pain) Rx Instructions: Give 1 tablet sublingual as needed for chest pain give 1 tab wait 5 mins and give another if chest pain persists, give third dose after another 5 mins if chest pain continues and transfer to ED oxycodone 5 mg Tablet 5 mg PO Q12H PRN (Reason: chronic pain) valsartan 40 mg Tablet 40 mg PO QDAY Rx Instructions: hold if sbp <100, dbp <60 or hr <60 bumetanide 2 mg tablet 2 mg PO QDAY Qty: 30 0RF Discontinued spironolactone 25 mg Tablet 25 mg PO QDAY Rx Instructions: hold for sbp <100 or dbp <60 allopurinol 300 mg Tablet 300 mg PO QDAY insulin glargine 100 unit/mL Solution 13 unit SUBCUT HS Rx Instructions: hold if blood sugar <90 glipizide 5 mg Tablet 5 mg PO BID Humalog Solution 100 unit/mL 7 unit subcut AC Rx Instructions: Hold if blood sugar <80. Cephalexin capsule 500 mg 500 mg PO TID Referrals: No Primary/Family,Physician [Primary Care Provider] - Ke Bowen MD [Physician] - Patient/Caregiver Discharge Instructions Discharge Activity: as per physical therapy Other Discharge Activity Instructions:: Take clindamycin 450 mg 3 times a day for 4 more days to complete the treatment for cellulitis. Stop spironolactone, start hydralazine 50 mg 3 times a day for blood pressure control, follow-up with nephrology outpatient to optimize blood pressure control. Take 35 units of Lantus every night, Lispro 8 units 3 times daily, your diabetes is very poorly controlled, optimize regimen outpatient. Stop glipizide as it can cause hypoglycemic episodes. We have adjusted your allopurinol dose for your kidney function, take allopurinol 100 mg daily. Continue all other home medications. Follow-up with nephrology in 1 to 2 weeks, follow-up with primary care physician in 1 to 2 weeks. Return to emergency department if symptoms worsen. Education Materials: Diabetes and Heart Disease, Diabetes Treating Minor Foot ..., Diabetes Treat Severe Foot Infecs, Diabetes and Kidney Disease, Cholesterol Lifestyle Changes, Discharge Instructions for Cellulitis Print Language: Jordanian Stand Alone Forms: Renee Award Info., Patient Portal Info Letter Discharge Order Discharge Orders: Discharge (Routine); Ordered 11/09/24 Ordered By: Melyssa Francis Quality Discharge Quality Measures VTE prophylaxis Attestestation MD Attestation I have discussed and was present for the essential components of the discharge history, physical examination, diagnosis, and discharge treatment plan with the resident. I agree with the patient's discharge care as documented by the resident and amended herein by me. Ramakrishna Sims, DO. The patient understood all discharge instructions, all questions were answered satisfactorily. The patient was instructed to return to the Emergency Department is symptoms worsened or persisted. Patient was stable, afebrile, tolerating p.o. intake at time of discharge to SNF. Patient's diabetes medications were adjusted, see above resident note for additional details. Although this document has been carefully reviewed, there may still be some phonetic and other typographical errors. These errors are purely grammatical due to imperfections in the software program and should not be construed in any way to compromise the substance of the patient's medical care during this visit.
--- NOTE | 2024-11-09 16:06 | PC.SS ---
SS has setup gurney transportation with Kristen from [facility] at [phone] for gurney transportation to [facility] for 6pm.? Ref# [id number].? SS has requested [facility].? Per [facility] patient admitting representative [facility] is not a guaranteed transport company.? Estimated time is 3-4 hours.? SS has sent patient?s facesheet and ambulance form to [facility] using [facility].? SS has spoken to at [facility] who states she has been contacted by [facility] and transport is set for 6pm. Pt is aware. Brother, Melvin is aware. Yesica from [facility] is aware. SS had informed Saritha from [facility] earlier and informed her SS would call back with estimated time (SS left voicemail with transport time). Bedside nurseAfia is aware. Kaylene MUNOZ is aware. SNF packet is on patient's chart.
--- NOTE | 2024-11-09 16:17 | PC.SS ---
SS has faxed d/c summary and d/c orders to [facility] upon their request. . Saritha bonilla [facility] is aware.
--- NOTE | 2024-11-09 18:02 | PC.NURSE ---
Called [facility] and gave report to Brad. Notified Brad pt is on his way and we will fax d/c paperwork that ambulance left on counter. Gave me fax no. [phone]
== END 2024-11-09 17:42 | disposition skilled nursing facility (03) | DRG 603 ==
LOC: SERX 17:40 → SERHOLD 20:19 → S3NX 11-07 06:47
PROVIDERS: Admitting Provider Student in an Organized Health Care Education/Training Program; Emergency Provider Family Medicine; Visit Provider Student in an Organized Health Care Education/Training Program
DX: L03.115 Cellulitis of right lower limb (principal); N17.9 Acute kidney failure, unspecified; N39.0 Urinary tract infection, site not specified; L03.116 Cellulitis of left lower limb; I44.0 Atrioventricular block, first degree; I49.3 Ventricular premature depolarization; E11.51 Type 2 diabetes mellitus with diabetic peripheral angiopathy without gangrene; E11.65 Type 2 diabetes mellitus with hyperglycemia; H54.8 Legal blindness, as defined in USA; N18.30 Chronic kidney disease, stage 3 unspecified; I12.9 Hypertensive chronic kidney disease with stage 1 through stage 4 chronic kidney disease, or unspecified chronic kidney disease; Z99.3 Dependence on wheelchair; I69.320 Aphasia following cerebral infarction; E11.22 Type 2 diabetes mellitus with diabetic chronic kidney disease; Z74.01 Bed confinement status; I87.2 Venous insufficiency (chronic) (peripheral); D69.6 Thrombocytopenia, unspecified; E78.5 Hyperlipidemia, unspecified; E87.5 Hyperkalemia; E87.6 Hypokalemia; G89.29 Other chronic pain; I08.1 Rheumatic disorders of both mitral and tricuspid valves; I69.328 Other speech and language deficits following cerebral infarction; K74.60 Unspecified cirrhosis of liver; M10.9 Gout, unspecified; K59.00 Constipation, unspecified; N40.0 Benign prostatic hyperplasia without lower urinary tract symptoms; I87.8 Other specified disorders of veins; Z79.01 Long term (current) use of anticoagulants; Z79.4 Long term (current) use of insulin; Z79.82 Long term (current) use of aspirin; Z79.84 Long term (current) use of oral hypoglycemic drugs; Z79.899 Other long term (current) drug therapy
CPT/HCPCS: 36415; 36600; 73700; 76700; 80053; 80061; 80069; 80074; 81001; 82728; 82803; 83036; 83540; 83550; 83735; 83880; 84100; 84145; 84484; 85025; 85610; 85652; 85730; 86140; 87040; 87077; 87081; 87186; 93005; 93225; 93306; 93970; 96361; 96365; 96367; 99285; J0696; J1815; J2543; J3370; J3372; J3475; J3490; J7030; J7050; A9270